=== PATIENT | male | born 1940 | race Caucasian/White ===

== ENCOUNTER → 2018-07-16 | Outpatient (CLI) | payer OTHER ==
[~2018-07-16] MED LIST: ASPIRIN325 PO; CLONIDINE0.1 PO; LIPITOR20 MG PO; MUCINEX600 MG PO; NORVASC 5 MG TAB5 MG PO; TAMIFLU30 MG PO; TOPROL XL25 MG PO
--- NOTE | 2018-07-16 15:20 | 2DMMODE ---
[place] [address] 2 D/M-MODE ECHOCARDIOGRAM Name: DON VALERIO Room: [facility]#: [id number] Admission: 07/16/18 Attend Phys: Angelo Tucker, Discharge: Date of : 38 Date of Service: 07/16/18 1519 Report #: [id number] THIS REPORT FOR: //name// APPROVED REPORT Study performed: 07/16/2018 13:42:42 EXAM: Comprehensive 2D, Doppler, and color-flow Echocardiogram Patient Location: Out-Patient Status: routine BSA: 2.31 HR: 58 bpm BP: 155/90 mmHg Other Information Study Quality: Good Indications Cardiomyopathy 2D Dimensions LVEF(%): 48.02 (>50%) IVSd: 14.63 (7-11mm) LVOT Diam: 20.28 (18-24mm) LVDd: 43.08 mm PWd: 13.15 (7-11mm) Ascending Ao: 27.97 (22-36mm) LVDs: 32.76 (25-40mm) Aortic Root: 25.94 mm Osorio's LVEF: 48.02 % Volumes Left Atrial Volume (Systole) LA ESV Index: 20.10 mL/m2 Aortic Valve AoV Peak Alex.: 1.21 m/s AO Peak Gr.: 5.86 mmHg LVOT Max P.84 mmHg AO Mean Gr.: 3.01 mmHg LVOT Mean P.59 mmHg LVOT Max V: 0.98 m/s AO V2 VTI: 23.61 cm LVOT Mean V: 0.56 m/s ARMAND (VTI): 2.84 cm2 LVOT V1 VTI: 20.79 cm Mitral Valve E/A Ratio: 0.91 MV Decel. Time: 252.78 [place] [address] 2 D/M-MODE ECHOCARDIOGRAM Name: DON VALERIO Room: [facility]#: [id number] Admission: 07/16/18 Attend Phys: Angelo Tucker, Discharge: Date of : 38 Date of Service: 07/16/18 1519 Report #: [id number] MV E Max Alex.: 0.59 m/s MV PHT: 73.31 ms MVA (PHT): 3.00 cm2 TDI E/Lateral E': 6.56 E/Medial E': 11.80 Medial E' Alex.: 0.05 m/s Lateral E' Alex.: 0.09 m/s Pulmonary Valve PV Peak Alex.: 1.15 m/s PV Peak Gr.: 5.28 mmHg Tricuspid Valve RAP Estimate: 5.00 mmHg TR Peak Gr.: 18.09 mmHg RVSP: 23.09 mmHg PA Pressure: 23.09 mmHg Left Ventricle The left ventricle is normal size. There is dyssynergy noted consistent with underlying bundle branch block. Mild to moderate concentric left ventricular hypertrophy. The left ventricular systolic function is normal. LVEF is 55-60%. Grade I - abnormal relaxation pattern. Right Ventricle The right ventricle is normal size. The right ventricular systolic function is normal. Atria The left atrium size is normal. The right atrium size is normal. Aortic Valve Aortic valve leaflets are mildly thickened. No aortic regurgitation is present. There is no aortic valvular stenosis. Mitral Valve The mitral valve is normal in structure. There is no mitral valve regurgitation noted. No evidence of mitral valve stenosis. Tricuspid Valve The tricuspid valve is normal in structure. Mild tricuspid regurgitation. No apparent pulmonary hypertension. Pulmonic Valve The pulmonary valve is normal in structure. There [place] [address] 2 D/M-MODE ECHOCARDIOGRAM Name: DON VALERIO Leonides Room: [facility]#: [id number] Admission: 07/16/18 Attend Phys: Angelo Tucker, Discharge: Date of : 38 Date of Service: 07/16/18 1519 Report #: [id number] valvular regurgitation. Great Vessels The aortic root is normal in size. IVC is normal in size and collapses with >50% inspiration Pericardium There is no pericardial effusion. <Conclusion> The left ventricle is normal size. Mild to moderate concentric left ventricular hypertrophy. The left ventricular systolic function is normal. LVEF is 55-60%. Grade I - abnormal relaxation pattern. There is dyssynergy noted consistent with underlying bundle branch block. Mild tricuspid regurgitation. No apparent pulmonary hypertension. IVC is normal in size and collapses with >50% inspiration <ELECTRONICALLY SIGNED> By: Angelo Tucker MD, FACC 07/16/18 1519 18 18 Angelo Tucker MD, FACC /INF
== END ==
LOC: M.CRD 13:16
DX: I07.1 Rheumatic tricuspid insufficiency (principal); I35.8 Other nonrheumatic aortic valve disorders; I42.8 Other cardiomyopathies

== ENCOUNTER 2019-07-15 16:43 | Emergency (ER) | payer OTHER ==
[~2019-07-15] VITALS: Ht 185.4 cm; Wt 109.8 kg
[2019-07-15] MEDS ORDERED: COREG25 MG PO (17:03)
[2019-07-15] MEDS ORDERED: ALLOPURINOL 10100 M1 PO (17:03)
[2019-07-15 17:20] LABS: ABSOLUTE EOSINOPHILS 0.1 thou/uL (0.0-0.7); ABSOLUTE LYMPHOCYTES 0.8 thou/uL (0.8-5.3); ABSOLUTE MONOCYTES 0.9 thou/uL (0.0-1.2); ABSOLUTE NEUTROPHILS 4.2 thou/uL (1.6-8.1); BASOPHILS 0.6 %; EOSINOPHILS 1.8 %; HEMOGLOBIN 12.5 gm/dL (14.0-18.0); LYMPHOCYTES 13.5 %; MCH 32.8 pg (26.0-34.0); MCHC 31.9 g/dL (28.0-37.0); MCV 102.6 fL (80.0-100.0); MONOCYTES 14.4 %; MPV 8.7 fl. (7.2-11.1); NUCLEATED RBCS 0 /100WBC; PLATELET COUNT* 201 thou/uL (150-400); POLYS 69.7 %; RDW-CV 15.5 % (10.5-14.5)
[2019-07-15 17:35] LABS: ANION GAP 10 mmol/L (7-16); BUN 30 mg/dL (7-18); CALCIUM 8.4 mg/dL (8.5-10.1); CHLORIDE 112 mmol/L (98-107); CO2 22 mmol/L (21-32); CREATININE 2.6 mg/dL (0.6-1.3); GLUCOSE 102 mg/dL (70-99); SODIUM 144 mmol/L (136-145)
[2019-07-15 17:52] LABS: ALBUMIN 2.8 g/dL (3.4-5.0); ALKALINE PHOSPHATASE 95 U/L (46-116); LIPASE 492 U/L (73-393); NT-PRO BRAIN NAT PEPTIDE 9173 pg/mL (<300); SGOT 18 U/L (15-37); SGPT 21 U/L (30-65); TOTAL BILIRUBIN 0.3 mg/dL (<0.1-1.0); TOTAL PROTEIN 6.2 g/dL (6.4-8.2); TROPONIN-I LEVEL <0.06 ng/mL (<0.06)
[2019-07-15] MEDS ORDERED: LOSARTAN-HCTZ1 EACH PO (17:59)
[2019-07-15] MEDS ORDERED: AFRIN30 ML NASAL (18:07)
[2019-07-15 18:35] VITALS: BP 202/99
--- NOTE | 2019-07-17 17:52 | EKG ---
[place] [address] ELECTROCARDIOGRAM REPORT Name: DON VALERIO Room: [facility]#: [id number] Admission: 07/15/19 Attend Phys: Discharge: 07/15/19 Date of : 38 Report #: [id number] THIS REPORT FOR: //name// [facility] ED Test Date: 2019-07-15 Test Time: 17:06:03 Pat Name: DON VALERIO Department: Room: Gender: Elevator Conductor: [facility] : 1940 Requested By: Jimy Kimble Order Number: [id number] MD: Antony Ramos Measurements Intervals [place] Rate: 62 P: 34 [place]: 208 QRS: 22 QRSD: 141 T: 193 QT: 457 QTc: 464 Interpretive Statements Sinus rhythm Left bundle branch block Compared to ECG 11/14/2012 08:02:36 Atrial premature complex(es) no longer present Electronically Signed On 07-17-2019 17:52:19 CDT by Antony Ramos [email or web address] <ELECTRONICALLY SIGNED> By: Ugo Ramos MD, [facility] 07/17/19 1752 05 05 Ugo Ramos MD, FACC /EPI
== END 2019-07-15 18:35 | disposition home or self-care (01) ==
LOC: M.ERS 16:43
PROVIDERS: Emergency Medicine
DX: I10 Essential (primary) hypertension (principal); Z98.890 Other specified postprocedural states; Z88.7 Allergy status to serum and vaccine

== ENCOUNTER → 2020-03-02 | Outpatient (CLI) | payer OTHER ==
[~2020-03-02] MED LIST changes: +AFRIN30 ML NASAL; +ALLOPURINOL 10100 M1 PO; +COREG25 MG PO; +LOSARTAN-HCTZ1 EACH PO
--- NOTE | 2020-03-02 15:38 | 2DMMODE ---
[place] [address] 2 D/M-MODE ECHOCARDIOGRAM Name: TEODORODON Leonides Room: [facility]#: [id number] Admission: 03/02/20 Attend Phys: Angelo Tucker, Discharge: Date of : 38 Date of Service: 03/02/20 1536 Report #: [id number] THIS REPORT FOR: cc: Macario Call Steve T. DO Liston, Michael J. MD [facility] ~ APPROVED REPORT Study performed: 03/02/2020 10:44:12 EXAM: Comprehensive 2D, Doppler, and color-flow Echocardiogram Patient Location: Out-Patient BSA: 2.29 HR: 55 bpm BP: 130/80 mmHg Other Information Study Quality: Good Indications Cardiomyopathy 2D Dimensions IVSd: 13.89 (7-11mm) LVOT Diam: 20.07 (18-24mm) LVDd: 52.04 mm PWd: 12.64 (7-11mm) Ascending Ao: 30.09 (22-36mm) LVDs: 43.12 (25-40mm) Aortic Root: 24.54 mm Volumes Left Atrial Volume (Systole) LA ESV Index: 22.50 mL/m2 Aortic Valve AoV Peak Alex.: 0.75 m/s AO Peak Gr.: 2.22 mmHg LVOT Max P.18 mmHg AO Mean Gr.: 1.20 mmHg LVOT Mean P.05 mmHg LVOT Max V: 0.74 m/s AO V2 VTI: 16.23 cm LVOT Mean V: 0.47 m/s ARMAND (VTI): 3.60 cm2 LVOT V1 VTI: 18.49 cm Mitral Valve E/A Ratio: 0.96 [place] [address] 2 D/M-MODE ECHOCARDIOGRAM Name: DON VALERIO Room: [facility]#: [id number] Admission: 03/02/20 Attend Phys: Angelo Tucker, Discharge: Date of : 38 Date of Service: 03/02/20 1536 Report #: [id number] MV Decel. Time: 381.24 ms MV E Max Alex.: 0.54 m/s MV PHT: 110.56 ms MVA (PHT): 1.99 cm2 TDI E/Lateral E': 10.80 E/Medial E': 10.80 Medial E' Alex.: 0.05 m/s Lateral E' Alex.: 0.05 m/s Pulmonary Valve PV Peak Alex.: 0.82 m/s PV Peak Gr.: 2.68 mmHg Tricuspid Valve RAP Estimate: 5.00 mmHg TR Peak Gr.: 18.61 mmHg RVSP: 23.61 mmHg PA Pressure: 23.61 mmHg Left Ventricle The left ventricle is normal size. There is global hypokinesis. Left ventricular systolic dyssynergy noted as well consistent with bundle branch block. There is normal left ventricular wall thickness. Left ventricular systolic function is mild to moderately decreased. LVEF is 30-35%. Transmitral Doppler flow pattern suggests restrictive physiology. Right Ventricle The right ventricle is normal size. The right ventricular systolic function is normal. Atria The left atrium size is normal. The right atrium size is normal. Aortic Valve Aortic valve leaflets are mildly thickened. No aortic regurgitation is present. There is no aortic valvular stenosis. Mitral Valve The mitral valve is normal in structure. Mild mitral regurgitation. No evidence of mitral valve stenosis. Tricuspid Valve The tricuspid valve is normal in structure. Mild tricuspid regurgitation. No apparent [place] [address] 2 D/M-MODE ECHOCARDIOGRAM Name: DON VALERIO Room: [facility]#: [id number] Admission: 03/02/20 Attend Phys: Angelo Tucker, Discharge: Date of : 38 Date of Service: 03/02/20 1536 Report #: [id number] Pulmonic Valve The pulmonary valve is normal in structure. There is no pulmonic valvular regurgitation. Great Vessels The aortic root is normal in size. IVC is not well visualized. Pericardium There is no pericardial effusion. <Conclusion> The left ventricle is normal size. There is normal left ventricular wall thickness. Left ventricular systolic function is mild to moderately decreased. LVEF is 30-35%. Transmitral Doppler flow pattern suggests restrictive physiology. There is global hypokinesis. Left ventricular systolic dyssynergy noted as well consistent with bundle branch block. Mild mitral regurgitation. Mild tricuspid regurgitation. No apparent pulmonary hypertension. <ELECTRONICALLY SIGNED> By: Angelo Tucker MD, FACC 03/02/20 1536 1536 1536 Angelo Tucker MD, FACC /INF
== END ==
LOC: M.CRD 10:16
DX: I08.3 Combined rheumatic disorders of mitral, aortic and tricuspid valves (principal); I42.8 Other cardiomyopathies

== ENCOUNTER → 2020-08-11 | Outpatient (CLI) | payer OTHER ==
[2020-08-11 15:22] LABS: CALCIUM 9.2 mg/dL (8.5-10.1); CREATININE 3.4 mg/dL (0.6-1.3); POTASSIUM 5.2 mmol/L (3.5-5.1)
== END ==
LOC: M.LAB 14:49
PROVIDERS: ATTEND Registered Nurse
DX: I50.43 Acute on chronic combined systolic (congestive) and diastolic (congestive) heart failure (principal)

== ENCOUNTER 2020-10-05 12:45 | Inpatient (IN) | payer OTHER ==
[~2020-10-05] VITALS: Ht 185.4 cm; Wt 111.1 kg
[2020-10-05 12:53] VITALS: BP 129/64
[2020-10-05 13:10] LABS: ABSOLUTE LYMPHOCYTES 0.5 thou/uL (0.8-5.3); ABSOLUTE MONOCYTES 0.6 thou/uL (0.0-1.2); ABSOLUTE NEUTROPHILS 4.1 thou/uL (1.6-8.1); BASOPHILS 0.7 %; HEMATOCRIT 38.2 % (42.0-52.0); HEMOGLOBIN 12.5 gm/dL (14.0-18.0); MCH 32.3 pg (26.0-34.0); MCHC 32.7 g/dL (28.0-37.0); MCV 98.9 fL (80.0-100.0); MONOCYTES 12.2 %; MPV 7.9 fl. (7.2-11.1); NUCLEATED RBCS 0 /100WBC; PLATELET COUNT* 212 thou/uL (150-400); POLYS 78.1 %; RBC 3.86 mil/uL (4.50-6.00); RDW-CV 15.3 % (10.5-14.5); WBC 5.3 thou/uL (4.0-11.0)
[2020-10-05 13:30] LABS: CALCIUM 8.4 mg/dL (8.5-10.1); CREATININE 4.4 mg/dL (0.6-1.3); POTASSIUM 4.2 mmol/L (3.5-5.1)
[2020-10-05 13:34] LABS: ALBUMIN 2.5 g/dL (3.4-5.0); TOTAL BILIRUBIN 0.4 mg/dL (<0.1-1.0); TOTAL PROTEIN 7.4 g/dL (6.4-8.2)
[2020-10-05 14:06] LABS: URINE BILIRUBIN NEGATIVE (Negative); URINE BLOOD NEGATIVE (Negative); URINE CLARITY CLEAR; URINE COLOR YELLOW; URINE GLUCOSE-RANDOM NEGATIVE (Negative); URINE KETONES NEGATIVE (Negative); URINE LEUKOCYTES-REFLEX NEGATIVE (Negative); URINE NITRITE-REFLEX NEGATIVE (Negative); URINE PROTEIN 2+ (Negative); URINE UROBILINOGEN 0.2 E.U./dl (0.2-1.0)
[2020-10-05 14:20] LABS: SQUAMOUS 0-3 Few /LPF (0-3)
[2020-10-05 14:21] LABS: BACTERIA-REFLEX 1-9 Few /HPF (None Seen); CASTS None Seen /LPF (None Seen); CRYSTALS None Seen /LPF (None Seen); MUCUS None Seen strn/LPF (None Seen); URINE RBC 0-2 Rare /HPF (0-2); URINE WBC-REFLEX 0-5 Rare /HPF (0-5)
--- NOTE | 2020-10-05 15:00 | EKG ---
[place] [address] ELECTROCARDIOGRAM REPORT Name: DON VALERIO Room: [facility]#: [id number] Admission: 10/05/20 Attend Phys: Discharge: Date of : 38 Date of Service: 10/05/20 1302 Report #: [id number] THIS REPORT FOR: //name// [facility] ED Test Date: 2020-10-05 Test Time: 13:02:39 Pat Name: DON VALERIO Department: Room: Gender: Vapor Coater: [facility] : 1940 Requested By: Miguelangel Reyes Order Number: [id number] MD: Angelo Tucker Measurements Intervals [place] Rate: 60 P: 238 GA: 197 QRS: 203 QRSD: 165 T: 66 QT: 469 QTc: 469 Interpretive Statements Sinus rhythm Left bundle branch block Compared to prior tracing No significant changes noted Electronically Signed On 10-05-2020 15:00:23 FOOD CHECKER by Angelo Tucker [email or web address] <ELECTRONICALLY SIGNED> By: Angelo Tucker MD, [facility] 10/05/20 1500 1302 01 Angelo Tucker MD, FACC /EPI
[2020-10-05 16:45] VITALS: BP 126/52
[2020-10-05 17:00] VITALS: BP 119/57
[2020-10-05 20:00] VITALS: BP 136/72
[2020-10-06 00:08] VITALS: BP 141/60
[2020-10-06 04:00] VITALS: BP 118/44
[2020-10-06 07:06] LABS: HEMATOCRIT 34.6 % (42.0-52.0); HEMOGLOBIN 11.4 gm/dL (14.0-18.0); MCH 32.3 pg (26.0-34.0); MCHC 32.9 g/dL (28.0-37.0); MCV 98.3 fL (80.0-100.0); MPV 8.3 fl. (7.2-11.1); RBC 3.52 mil/uL (4.50-6.00); RDW-CV 15.3 % (10.5-14.5); WBC 3.1 thou/uL (4.0-11.0)
[2020-10-06 07:24] LABS: ALBUMIN 2.1 g/dL (3.4-5.0); CALCIUM 7.4 mg/dL (8.5-10.1); CREATININE 3.8 mg/dL (0.6-1.3); POTASSIUM 4.6 mmol/L (3.5-5.1); TOTAL BILIRUBIN 0.2 mg/dL (<0.1-1.0); TOTAL PROTEIN 6.5 g/dL (6.4-8.2)
[2020-10-06 08:00] VITALS: BP 135/85
[2020-10-06 12:49] VITALS: BP 124/65
[2020-10-06 18:01] VITALS: BP 129/57
[2020-10-06 20:00] VITALS: BP 145/66
[2020-10-07 00:08] VITALS: BP 131/56
[2020-10-07 05:06] VITALS: BP 147/82
[2020-10-07 05:09] LABS: HEMOGLOBIN 11.3 gm/dL (14.0-18.0); MCH 31.9 pg (26.0-34.0); MCHC 32.3 g/dL (28.0-37.0); MCV 98.9 fL (80.0-100.0); MPV 8.4 fl. (7.2-11.1); NUCLEATED RBCS 0 /100WBC; PLATELET COUNT* 224 thou/uL (150-400); RBC 3.54 mil/uL (4.50-6.00); RDW-CV 15.5 % (10.5-14.5); WBC 5.1 thou/uL (4.0-11.0)
[2020-10-07 05:24] LABS: ALBUMIN 2.1 g/dL (3.4-5.0); CALCIUM 7.8 mg/dL (8.5-10.1); CREATININE 3.5 mg/dL (0.6-1.3); POTASSIUM 4.4 mmol/L (3.5-5.1); TOTAL BILIRUBIN 0.2 mg/dL (<0.1-1.0); TOTAL PROTEIN 6.2 g/dL (6.4-8.2)
[2020-10-07 06:46] LABS: ABSOLUTE LYMPHOCYTES 0.3 thou/uL (0.8-5.3); ABSOLUTE MONOCYTES 0.1 thou/uL (0.0-1.2); ABSOLUTE NEUTROPHILS 4.7 thou/uL (1.6-8.1); PLATELET ESTIMATE ADEQUATE
[2020-10-07 08:00] VITALS: BP 138/88
--- NOTE | 2020-10-07 11:23 | CON ---
[address] [address] CONSULTATION Name: DON VALERIO Room: [address] IN .R.#: [id number] Admission: 10/05/20 Attend Phys: Delilah Munoz MD Discharge: Date of : 38 Report #: [id number] THIS REPORT FOR: //name// cc: Macario Call Steve T. DO ~ DATE OF SERVICE: 10/06/2020 This is a consultation obtained by Dr. Munoz for acute kidney injury on chronic kidney disease. HISTORY OF PRESENT ILLNESS: The patient is an 79-year-old gentleman seen in the COVID Unit today. The patient was admitted for diarrhea, 4-5 bowel movements a day for the past week. He follows my partner, Dr. Arriola, in the outpatient for stage 3/4 chronic kidney disease. I will obtain more records from my office for the same. The patient has been on antihypertensives at home including losartan and hydrochlorothiazide. On admission, his creatinine was found to be markedly elevated at 4.4. This morning, he reports his diarrhea has improved. He denies any fevers or chills. No nausea, no vomiting, no dizziness, chest pain, etc. PAST MEDICAL HISTORY: Chronic kidney disease stage 3, hypertension, now COVID positive, gout and hernia surgery many years ago. REVIEW OF SYSTEMS: Besides diarrhea, no other major symptoms reported. HOME MEDICATIONS: Losartan, hydrochlorothiazide, oxymetazoline, and carvedilol. PERSONAL, SOCIAL AND FAMILY HISTORY: The patient is a former smoker, he quit many years ago. No family history of end-stage renal disease. PHYSICAL EXAMINATION: GENERAL: He is awake, alert, oriented x 3. VITAL SIGNS: Blood pressure 135/85, pulse of 53, temperature 36.1. LUNGS: Diminished. HEART: Regular, S1 and S2. ABDOMEN: Soft. EXTREMITIES: No edema. SKIN: Dry. LABORATORY DATA: This morning labs, white count 3.1, hemoglobin is 11.4. Metabolic panel with sodium 130, potassium 4.6, chloride 107, bicarbonate 20, BUN 69, creatinine 3.8, down from 4.4 yesterday. BUN is about the same as yesterday. AST 32, ALT 21, alkaline phosphatase 32. Albumin is 2.1, prealbumin 10.9. Urinalysis shows 2+ protein, negative ketones, no rbc's, [place] [address] CONSULTATION Name: DON VALERIO Room: [address]#: [id number] Admission: 10/05/20 Attend Phys: Delilah Munoz MD Discharge: Date of : 38 Report #: [id number] wbc's. COVID test is positive. IMAGING STUDIES: Chest x-ray on admission did not show any acute abnormalities. ASSESSMENT: 1. Nonoliguric acute kidney injury. 2. Hypertension. 3. Diarrhea recently. 4. COVID positive now. PLAN: 1. Acute kidney injury secondary to volume depletion from diarrhea and ongoing use of losartan and hydrochlorothiazide. 2. Continue normal saline at the present rate. 3. Check urine electrolytes and ultrasound of the kidneys. 4. No further workup is necessary. 5. We will get records from the office to determine his baseline renal function. Thank you for the consultation. Please avoid all nephrotoxic medications while in the hospital. <ELECTRONICALLY SIGNED> By: Isaac Cromier MD 10/07/20 1123 0911 1002Isaac Cormier MD /nt
[2020-10-07 12:30] VITALS: BP 123/78
[2020-10-07 15:49] VITALS: BP 127/73
--- NOTE | 2020-10-07 16:39 | EKG ---
[place] [address] ELECTROCARDIOGRAM REPORT Name: DON VALERIO Room: [address] ADM IN .R.#: [id number] Admission: 10/05/20 Attend Phys: Delilah Munoz, Discharge: Date of : 38 Date of Service: 10/07/20 0433 Report #: [id number] THIS REPORT FOR: //name// [facility] Test Date: 2020-10-07 Test Time: 04:33:47 Pat Name: DON VALERIO Department: Room: [address] Gender: M Jacquard Card Cutter: BX : 1940 Requested By: Arpit Diaz Order Number: [id number] Wesley MD: Kevin Amaro Measurements Intervals [place] Rate: 108 P: TN: QRS: -3 QRSD: 158 T: 150 QT: 396 QTc: 531 Interpretive Statements Atrial fibrillation Left bundle branch block Baseline wander in lead(s) V1,V3 Compared to ECG 10/05/2020 13:02:39 Sinus rhythm no longer present Electronically Signed On 10-07-2020 16:39:00 SCANNING MANAGER by Kevin Amaro [email or web address] <ELECTRONICALLY SIGNED> By: Kevin Amaro MD, FAC 10/07/20 1639 0433 0433 Kevin Amaro MD, [facility] /EPI
[2020-10-07 21:10] VITALS: BP 151/75
[2020-10-08 00:28] VITALS: BP 125/76
[2020-10-08 05:32] LABS: PREALBUMIN 13.3 mg/dL (18.0-35.7)
[2020-10-08 08:00] VITALS: BP 113/80
[2020-10-08 09:27] LABS: CALCIUM 8.8 mg/dL (8.5-10.1); CREATININE 3.4 mg/dL (0.6-1.3); POTASSIUM 4.7 mmol/L (3.5-5.1)
[2020-10-08 11:47] VITALS: BP 145/62
[2020-10-08 15:33] VITALS: BP 141/58
--- NOTE | 2020-10-08 18:11 | EKG ---
[place] [address] ELECTROCARDIOGRAM REPORT Name: DON VALERIO Room: [address] ADM IN ..#: [id number] Admission: 10/05/20 Attend Phys: Delilah Munoz, Discharge: Date of : 38 Date of Service: 10/08/20 1404 Report #: [id number] THIS REPORT FOR: //name// [facility] Test Date: 2020-10-08 Test Time: 14:04:54 Pat Name: DON VALERIO Department: Room: [address] Gender: M Machine Try Out Setter: [id number] : 1940 Requested By: Maribeth Benítez Order Number: [id number] Wesley MD: Angelo Tucker Measurements Intervals [place] Rate: 81 P: ID: QRS: 2 QRSD: 158 T: 191 QT: 419 QTc: 487 Interpretive Statements Atrial fibrillation Left bundle branch block Compared to ECG 10/07/2020 04:33:47 No significant changes Electronically Signed On 10-08-2020 18:11:24 SUPERVISOR CORE DRILLING by Angelo Tucker [email or web address] <ELECTRONICALLY SIGNED> By: Angelo Tucker MD, FACC 10/08/20 1811 1404 1404 Angelo Tucker MD, FAC /EPI
[2020-10-08 20:00] VITALS: BP 158/83
[2020-10-09] VITALS: BP 146/80
[2020-10-09 02:06] LABS: HEPATITIS B SURFACE AG Negative (Negative); HIV-1/HIV-2 ANTIBODY Non Reactive (Non Reactive)
[2020-10-09 04:00] VITALS: BP 144/81
[2020-10-09 07:05] LABS: CALCIUM 8.5 mg/dL (8.5-10.1); CREATININE 3.5 mg/dL (0.6-1.3); POTASSIUM 4.7 mmol/L (3.5-5.1)
[2020-10-09 08:00] VITALS: BP 140/77
[2020-10-09] MEDS ORDERED: PREDNISONE 10 M10 MG PO (09:53)
[2020-10-09] MEDS ORDERED: AMIODARONE HCL400 MG PO (09:53)
[2020-10-09] MEDS ORDERED: CEFDINIR300 MG PO (09:53)
[2020-10-09] MEDS ORDERED: ELIQUIS2.5 MG PO (09:53)
[2020-10-09] MEDS ORDERED: LASIX 40 MG TAB40 M1 PO (09:53)
[2020-10-09 11:31] VITALS: BP 153/87
[2020-10-09 11:33] VITALS: BP 153/87
[2020-10-09 11:36] VITALS: BP 153/87
== END 2020-10-09 13:15 | disposition home health service (06) | DRG 177 ==
LOC: M.ERS 12:45 → M.ORTHSURG 15:23 → M.TBA-ER 15:23 → M.ORTHSURG 16:33
PROVIDERS: Family Medicine; Internal Medicine; Internal Medicine Nephrology; Nurse Practitioner Family; Registered Nurse; ADMIT Internal Medicine; ATTEND Internal Medicine
PROC: XW033E5 Introduction of Remdesivir Anti-infective into Peripheral Vein, Percutaneous Approach, New Technology Group 5 (ICD-10-PCS; principal; 2020-10-06)
DX: U07.1 COVID-19 (principal); J15.6 Pneumonia due to other Gram-negative bacteria; J96.01 Acute respiratory failure with hypoxia; N17.0 Acute kidney failure with tubular necrosis; J12.89 Other viral pneumonia; I50.22 Chronic systolic (congestive) heart failure; I42.8 Other cardiomyopathies; I13.0 Hypertensive heart and chronic kidney disease with heart failure and stage 1 through stage 4 chronic kidney disease, or unspecified chronic kidney disease; N18.4 Chronic kidney disease, stage 4 (severe); K52.9 Noninfective gastroenteritis and colitis, unspecified; E66.9 Obesity, unspecified; I48.0 Paroxysmal atrial fibrillation; E86.9 Volume depletion, unspecified; M10.9 Gout, unspecified; Z68.32 Body mass index [BMI] 32.0-32.9, adult; Z79.899 Other long term (current) drug therapy

== ENCOUNTER → 2020-11-25 | Outpatient (CLI) | payer OTHER ==
[2020-11-25] VITALS (17 sets, daily range): BP systolic 100–152; BP diastolic 48–85
[~2020-11-25] MED LIST changes: +AMIODARONE HCL400 MG PO; +CEFDINIR300 MG PO; +ELIQUIS2.5 MG PO; +LASIX 40 MG TAB40 M1 PO; +PREDNISONE 10 M10 MG PO
--- NOTE | ~2020-11-25 | CARD ---
[address] [address] CARDIAC CATH REPORT Name: DON VALERIO Room: [facility]#: [id number] Admission: 11/25/20 Attend Phys: Angelo Tucker MD Discharge: Date of : 38 Report #: [id number] THIS REPORT FOR: cc: Macario Call Steve T. DO ~ Liston, Michael J. MD [facility] CARDIAC PROCEDURE INDICATION: Persistent atrial fibrillation. PROCEDURE: DC cardioversion. DESCRIPTION OF PROCEDURE: After informed consent was obtained, the patient was brought to the cardiac holding area. The patient was given intravenous Versed and fentanyl, 3 mg and 75 mg for adequate sedation. The patient failed to cardiovert from atrial fibrillation with a single biphasic shock of 300 joules. A second biphasic shock of 360 joules converted the patient to sinus bradycardia. The patient tolerated the procedure without complication. IMPRESSION: 1. Persistent atrial fibrillation. 2. Successful direct current cardioversion to normal sinus rhythm. By: 1055 [id number] Lucia Tucker MD, [facility] /nt
[2020-11-25 10:27] LABS: HEMATOCRIT 33.3 % (42.0-52.0); HEMOGLOBIN 10.9 gm/dL (14.0-18.0); MCH 33.3 pg (26.0-34.0); MCHC 32.9 g/dL (28.0-37.0); MCV 101.2 fL (80.0-100.0); MPV 7.9 fl. (7.2-11.1); RBC 3.29 mil/uL (4.50-6.00); RDW-CV 17.4 % (10.5-14.5); WBC 8.1 thou/uL (4.0-11.0)
[2020-11-25 10:35] LABS: CALCIUM 10.1 mg/dL (8.5-10.1); CREATININE 4.6 mg/dL (0.6-1.3); POTASSIUM 3.9 mmol/L (3.5-5.1)
[2020-11-25 10:40] LABS: ALBUMIN 2.8 g/dL (3.4-5.0); TOTAL BILIRUBIN 0.4 mg/dL (<0.1-1.0); TOTAL PROTEIN 6.6 g/dL (6.4-8.2)
== END | disposition home or self-care (01) ==
LOC: M.CL 09:54
PROVIDERS: ATTEND Internal Medicine Cardiovascular Disease
DX: I48.19 Other persistent atrial fibrillation (principal); I12.9 Hypertensive chronic kidney disease with stage 1 through stage 4 chronic kidney disease, or unspecified chronic kidney disease; N18.9 Chronic kidney disease, unspecified; Z98.890 Other specified postprocedural states; Z79.899 Other long term (current) drug therapy; Z79.01 Long term (current) use of anticoagulants

== ENCOUNTER → 2020-12-10 | Outpatient (CLI) | payer OTHER ==
[2020-12-10 12:13] LABS: CALCIUM 10.4 mg/dL (8.5-10.1); CREATININE 5.6 mg/dL (0.6-1.3); POTASSIUM 3.7 mmol/L (3.5-5.1)
== END ==
LOC: M.LAB 11:42
PROVIDERS: ATTEND Nurse Practitioner
DX: N18.30 Chronic kidney disease, stage 3 unspecified (principal)

== ENCOUNTER 2020-12-29 19:04 | Inpatient (IN) | payer OTHER ==
[~2020-12-29] VITALS: Ht 185.4 cm; Wt 113.1 kg
--- NOTE | ~2020-12-29 | PROC ---
[address] [address] PROCEDURE REPORT Name: DON VALERIO Room: [address] IN M.R.#: [id number] Admission: 12/29/20 Attend Phys: René Patel MD Discharge: 01/08/21 Date of : 38 Report #: [id number] THIS REPORT FOR: cc: Macario Call Steve T. DO ~ [facility],Medical Records Staff For GI report, please see the Provation report in Perceptive 7 content. By: [id number] Records Staff [facility] /MELISA
[2020-12-29 19:05] VITALS: BP 140/43
[2020-12-29 19:40] LABS: ABSOLUTE EOSINOPHILS 0.1 thou/uL (0.0-0.7); ABSOLUTE LYMPHOCYTES 0.6 thou/uL (0.8-5.3); ABSOLUTE MONOCYTES 0.8 thou/uL (0.0-1.2); ABSOLUTE NEUTROPHILS 4.3 thou/uL (1.6-8.1); BASOPHILS 0.8 %; EOSINOPHILS 1.9 %; HEMATOCRIT 24.3 % (42.0-52.0); HEMOGLOBIN 7.6 gm/dL (14.0-18.0); LYMPHOCYTES 10.2 %; MCHC 31.2 g/dL (28.0-37.0); MCV 102.4 fL (80.0-100.0); MONOCYTES 14.3 %; MPV 7.6 fl. (7.2-11.1); NUCLEATED RBCS 0 /100WBC; PLATELET COUNT* 206 thou/uL (150-400); POLYS 72.8 %; RBC 2.37 mil/uL (4.50-6.00); RDW-CV 17.3 % (10.5-14.5); WBC 5.9 thou/uL (4.0-11.0)
[2020-12-29 19:54] LABS: INR 1.1; PROTIME 12.1 Seconds (9.20-11.50)
[2020-12-29 19:55] LABS: CALCIUM 10.1 mg/dL (8.5-10.1); CREATININE 7.4 mg/dL (0.6-1.3); POTASSIUM 4.7 mmol/L (3.5-5.1)
[2020-12-29 20:05] LABS: ALBUMIN 2.9 g/dL (3.4-5.0); MAGNESIUM 3.2 mg/dL (1.8-2.4); TOTAL BILIRUBIN 0.3 mg/dL (<0.1-1.0); TOTAL PROTEIN 6.5 g/dL (6.4-8.2)
[2020-12-29 23:34] VITALS: BP 143/84
[2020-12-30] VITALS (57 sets, daily range): BP systolic 92–194; BP diastolic 43–105
--- NOTE | 2020-12-30 00:13 | NUR ---
PT ADMITTED TO ICU ROOM #4 AT 2310. CALL LIGHT IN REACH, PT DEMONSTRATES PROPER USE. PT INSTRUCTED TO REMAIN NPO AFTER MIDNIGHT FOR POSSIBLE DIALYSIS CATHETER PLACEMENT AND POSSIBLE PACEMEKER PLACEMENT.
--- NOTE | 2020-12-30 05:49 | NUR ---
INCREASED O2 TO 5 LITERS TO MAINTAIN O2 SAT > 90%
--- NOTE | 2020-12-30 06:27 | NUR ---
O2 TITRATED UP TO 10 LITERS TO MAINTAIN SAT > 90%
--- NOTE | 2020-12-30 09:44 | EKG ---
[place] [address] ELECTROCARDIOGRAM REPORT Name: TEODOROJOSE ARMANDOPatrick Leonides Room: [address] ADM IN [facility]#: [id number] Admission: 12/29/20 Attend Phys: René Patel, Discharge: Date of : 38 Date of Service: 12/29/202018 Report #: [id number] THIS REPORT FOR: //name// [facility] ED Test Date: 2020-12-29 Test Time: 20:19:27 Pat Name: DON VALERIO Department: Room: [facility] Gender: M Watch Leader: RADHA : 1940 Requested By: Eleonora Georges Order Number: [id number] MD: Angelo Tucker Measurements Intervals [place] Rate: 50 P: 0 MI: 68 QRS: -1 QRSD: 186 T: 107 QT: 558 QTc: 509 Interpretive Statements Sinus rhythm Atrial premature complex Short MI interval IVCD, consider atypical LBBB Baseline wander in lead(s) V1 Compared to ECG 10/08/2020 14:04:54 Atrial premature complex(es) now present Short MI interval now present Atrial fibrillation no longer present Electronically Signed On 12-30-2020 9:44:07 RECORD FILING CLERK by Angelo Tucker [email or web address] <ELECTRONICALLY SIGNED> By: Angelo Tucker MD, [facility] 12/30/20 0944 18 18 Angelo Tucker MD, [facility] /EPI
[2020-12-30 13:54] LABS: URINE BILIRUBIN NEGATIVE (Negative); URINE BLOOD NEGATIVE (Negative); URINE CLARITY CLEAR; URINE COLOR YELLOW; URINE GLUCOSE-RANDOM NEGATIVE (Negative); URINE KETONES NEGATIVE (Negative); URINE LEUKOCYTES-REFLEX NEGATIVE (Negative); URINE NITRITE-REFLEX NEGATIVE (Negative); URINE PROTEIN TRACE (Negative); URINE UROBILINOGEN 0.2 E.U./dl (0.2-1.0)
--- NOTE | 2020-12-30 14:00 | NUR ---
PT.SLEEPING. AT BEDSIDE. SHE SPOKE SOME URDU BUT VERY LITTLE. SHE ASKED THAT I CALL SON,VITA. HE LIVES WITH THEM AND WOULD BE ABLE TO ANSWER QUESTIONS. HAD TO LEAVE A VM AT [phone] VITA.
--- NOTE | 2020-12-30 14:09 | EKG ---
[place] [address] ELECTROCARDIOGRAM REPORT Name: DON VALERIO Room: [address] ADM IN ..#: [id number] Admission: 12/29/20 Attend Phys: René Patel, Discharge: Date of : 38 Date of Service: 12/29/201909 Report #: [id number] THIS REPORT FOR: //name// [facility] ED Test Date: 2020-12-29 Test Time: 19:10:38 Pat Name: DON VALERIO Department: Room: [address] Gender: M Fine Arts Instructor: LINA : 1940 Requested By: Eleonora Georges Order Number: [id number] Wesley MD: Angelo Tucker Measurements Intervals [place] Rate: 43 P: ND: QRS: -16 QRSD: 170 T: 158 QT: 498 QTc: 422 Interpretive Statements Junctional rhythm Left bundle branch block Compared to ECG 12/29/2020 19:09:13 No significant changes noted Electronically Signed On 12-30-2020 14:09:41 BOOKMAKER'S CLERK by Angelo Tucker [email or web address] <ELECTRONICALLY SIGNED> By: Angelo Tucker MD, FACC 12/30/20 1409 09 09 Angelo Tucker MD, FAC /EPI
--- NOTE | 2020-12-30 14:09 | EKG ---
[place] [address] ELECTROCARDIOGRAM REPORT Name: DON VALERIO Room: [address] ADM IN [facility]#: [id number] Admission: 12/29/20 Attend Phys: René Patel, Discharge: Date of : 38 Date of Service: 12/29/20 190 Report #: [id number] THIS REPORT FOR: //name// [facility] ED Test Date: 2020-12-29 Test Time: 19:09:13 Pat Name: DON VALERIO Department: Room: [facility] Gender: M Separator Operator Shellfish Meats: LINA : 1940 Requested By: Eleonora Georges Order Number: [id number] MD: Angelo Tucker Measurements Intervals [place] Rate: 44 P: FL: QRS: -28 QRSD: 173 T: 206 QT: 537 QTc: 460 Interpretive Statements Junctional rhythm Left bundle branch block Baseline wander in lead(s) II,III,aVR,aVL,aVF,V1,V2,V3 Compared to ECG 10/08/2020 14:04:54 Junctional rhythm now present Atrial fibrillation no longer present Electronically Signed On 12-30-2020 14:09:27 STILL CLEANER by Angelo Tucker [email or web address] <ELECTRONICALLY SIGNED> By: Angelo Tucker MD, FAC 12/30/20 1409 08 08 Angelo Tucker MD, FAC /EPI
--- NOTE | 2020-12-30 19:39 | NUR ---
Patient bradycardic throughout shift but asymptomatic; dialysis catheter inserted at the bedside by Dr. Browne, right jugular. Hidalgo catheter inserted for accurate I&Os. Atropine .5mg given once during dialysis. Tolorated hemodialysis. Pt tolorated diet; was at bedside this afternoon and updated.
[2020-12-31] VITALS (202 sets, daily range): BP systolic 93–189; BP diastolic 38–119
[2020-12-31 02:06] LABS: HEPATITIS B SURFACE AG Negative (Negative)
[2020-12-31 04:30] LABS: HEMOGLOBIN 7.3 gm/dL (14.0-18.0); MCH 32.2 pg (26.0-34.0); MCHC 31.9 g/dL (28.0-37.0); MCV 101.2 fL (80.0-100.0); MPV 7.8 fl. (7.2-11.1); RBC 2.27 mil/uL (4.50-6.00); RDW-CV 16.9 % (10.5-14.5); WBC 8.3 thou/uL (4.0-11.0)
[2020-12-31 04:56] LABS: ALBUMIN 2.8 g/dL (3.4-5.0); CALCIUM 9.4 mg/dL (8.5-10.1); POTASSIUM 4.3 mmol/L (3.5-5.1); TOTAL BILIRUBIN 0.4 mg/dL (<0.1-1.0); TOTAL PROTEIN 6.4 g/dL (6.4-8.2)
[2020-12-31 04:59] LABS: % SATURATION 12 % (20-39); CREATININE 5.5 mg/dL (0.6-1.3); IRON 42 ug/dL (50-175)
--- NOTE | 2020-12-31 09:07 | CON ---
[address] [address] CONSULTATION Name: DON VALERIO Leonides Room: [address] IN .R.#: [id number] Admission: 12/29/20 Attend Phys: René Patel MD Discharge: Date of : 39 Report #: [id number] THIS REPORT FOR: cc: Macario Call Steve T. DO ~ Angelo Tucker MD [facility] CARDIOLOGY CONSULT INDICATION: Lethargy and acute renal failure. HISTORY OF PRESENT ILLNESS: The patient is a very pleasant 80-year-old gentleman well known to ourselves. He has a history of nonischemic cardiomyopathy with an ejection fraction of 30-35%. Additionally, he has hypertension and chronic renal insufficiency. He presents to the hospital with acute worsening of his underlying chronic renal insufficiency. His creatinine is approximately 7. His electrolytes are stable. Primary complaint is increasing shortness of breath and lethargy over the last several weeks. Additionally, he is anemic with a hemoglobin of 7.5, which represents a fall in his hemoglobin. He is heme positive by guaiac stool. He is not having any chest pain or significant acute worsening of his shortness of breath. PAST MEDICAL HISTORY: 1. Nonischemic cardiomyopathy. 2. Chronic renal insufficiency that was stage 4, now end-stage. 3. Paroxysmal atrial fibrillation, on amiodarone. 4. Recent COVID-19 infection. 5. Hypertension. ALLERGIES: None documented. REPORTED HOME MEDICATIONS: Allopurinol 100 mg p.o. b.i.d., amiodarone 200 mg daily, Eliquis 2.5 mg b.i.d., carvedilol 25 mg b.i.d., furosemide 80 mg p.o. daily, Afrin nasal spray q.i.d., prednisone 10 mg daily. FAMILY HISTORY: Noncontributory. SOCIAL HISTORY: The patient is a nonsmoker. He does not drink alcohol. He quit smoking many, many years ago. REVIEW OF SYSTEMS: A 14-point review of systems significant for dyspnea on exertion, shortness of breath at rest and malaise and fatigue. Otherwise, unremarkable. PHYSICAL EXAMINATION: VITAL SIGNS: Stable. Heart rate presently 50 [place] [address] CONSULTATION Name: DON VALERIO Room: [address]#: [id number] Admission: 12/29/20 Attend Phys: René Patel MD Discharge: Date of : 39 Report #: [id number] telemetry. Blood pressure is 127/62. GENERAL: This is a pleasant gentleman who is in no distress. HEENT: Head is normocephalic, atraumatic. Extraocular muscles intact. Mucous membranes are moist. NECK: Shows no obvious jugular venous distention. CHEST: Reveals clear lung munson without wheezes or rales. CARDIOVASCULAR: Reveals a bradycardic rhythm that is regular, without gallop or murmur. ABDOMEN: Reveals a protuberant abdomen with bowel sounds. The abdomen is somewhat distended, but appears nontender. EXTREMITIES: Shows 1+ edema to above the knees bilaterally. LABORATORY DATA: Reviewed. Sodium 148, potassium 4.7, chloride 112, bicarbonate 27, BUN 128, creatinine 7.4, serum glucose 121. LFTs are within normal limits. Troponin less than 0.06 on 3 separate occasions. NT-proBNP 4458. White blood cell count 5.9, hemoglobin 7.3, and platelet count 206,000. Chest x-ray shows no acute changes. IMPRESSION AND RECOMMENDATIONS: 1. Nonischemic cardiomyopathy with slight exacerbation secondary to acute renal failure consistent with lnivh-gl-wnnhmvf systolic heart failure. The patient is going to be dialysis dependent for volume removal. Nephrology has been consulted and dialysis started. Beta edith discontinued due to bradycardia. He is not on an YASMANY inhibitor or ARB secondary to renal failure. We will resume other heart failure medications as tolerated. 2. Bradycardia. The patient presently in sinus bradycardia. His carvedilol and amiodarone have been discontinued. He is hemodynamically stable at this time. Continue holding rate controlling medications at this time. 3. Paroxysmal atrial fibrillation. He has been in sinus rhythm on amiodarone. This has been discontinued due to bradycardia. Anticoagulation held due to possible GI bleeding. We will resume when medically possible. 4. End-stage renal disease. Per Nephrology. A dialysis catheter has been placed and he has begun dialysis. 5. Hypertension, presently controlled. We will follow and add medicines as needed. 6. Chronic left bundle branch block. 7. Gastrointestinal bleeding with drop in hemoglobin. The patient has remained hemodynamically stable. I believe he is stable enough from a cardiac standpoint to proceed with EGD and colonoscopy. <ELECTRONICALLY SIGNED> By: Angelo Tucker MD, FACC 12/31/20 0907 1722 19Microhan Tucker MD, FACC /nt
--- NOTE | 2020-12-31 09:51 | CON ---
[address] [address] CONSULTATION Name: DON VALERIO Room: [address] IN .R.#: [id number] Admission: 12/29/20 Attend Phys: René Patel MD Discharge: Date of : 39 Report #: [id number] THIS REPORT FOR: cc: Macario Call Steve T. DO ~ Tima Camp MD DATE OF SERVICE: 12/30/2020 REQUESTING PHYSICIAN: Dr. René Patel. REASON FOR CONSULTATION: Uremia. HISTORY OF PRESENT ILLNESS: The patient is an 80-year-old gentleman, with medical history significant for chronic kidney disease stage 5, who was advised by Dr. Arriola to come to the hospital due to anemia and progressive worsening of his renal status. His creatinine is now 7 and on reviewing the labs, I think it is just a progression of his disease and now he reaches end-stage renal disease. Other problems include hypertension, anemia and obesity. He also recently had a COVID infection that was in 09/2020. MEDICATIONS PRIOR TO ADMISSION: Reviewed. On admission, he complains of overall weakness, dyspnea on exertion, pollakiuria and nocturia. He does not have any chest pain or chest pressure. PHYSICAL EXAMINATION: GENERAL: He is awake, alert, oriented. VITAL SIGNS: His blood pressure 138/59, heart rate 47, afebrile. HEENT: Pupils are round. NECK: Fatty. LUNGS: Fairly clear. No crackles. CARDIOVASCULAR: Distant heart tones. ABDOMEN: Obese. LOWER EXTREMITIES: Trace edema. LABORATORY DATA: Lab report revealed hemoglobin of 7.3, serum sodium 148, potassium 4.7, chloride 112, carbon dioxide 27, BUN 128, creatinine 7.4. ASSESSMENT: 1. Chronic kidney disease stage 5, now progressed to end-stage. 2[place] [address] CONSULTATION Name: DON VALERIO Leonides Room: [address]#: [id number] Admission: 12/29/20 Attend Phys: René Patel MD Discharge: Date of : 39 Report #: [id number] 3. Obesity. 4. Hypertension. PLAN: ____ to place a tunneled dialysis line and start dialysis. We will check his iron stores. We will follow on his chemistries and hemoglobin. The rest of the problems will be addressed by the primary team. <ELECTRONICALLY SIGNED> By: Tima Camp MD 12/31/20 0951 0950 [id number] Camp MD /nt
--- NOTE | 2020-12-31 10:58 | NUR ---
0945 PATIENT ON COMMODE HAVING BOWEL MOVEMENT WHEN HE ELIZABET DOWN INTO THE 30'S NURSE AT BEDSIDE. PATIENT SYMPTOMATIC WITH DIZZYNESS, PALE, BLOOD PRESSURE DECRESSING AND LETHARGIC. NURSE ABLE TO KEEP PATIENT AWAKE AND FOLLOWING COMMANDS. CARDIOLOGY AND HOSPITALIST CALLED STAT, ORDERS RECIEVED FOR ATROPINE AFTER GIVING 3 DOSES, OF 1MG PATIENT HR WAS STILL NOT RESPONDING TO ATROPINE. DOPAMINE STARTED AND HEART RATE IMPROVED TO THE 40'S AND 500CC NS BOLUS GIVEN WELL. PATIENT WAS THEN TAKEN EMERGENLY TO [facility]ACHINE TO HAVE A TEMP PACEMAKER PLACED. PRIOR TO LEVING TO HAVE PACEMAKER PLACED PATIENT WAS LETHARGIC BUT ABOUT TO FOLLOW COMMANDS. PATIENT RETURNED FROM [facility] SATS IN THE 70'S, PATEINT PLACED ON NON-REBREATHER, STATES REMAINED IN THE 70'S. RT PAGED AND PATIENT PLACED ON BIPAP.PATIENT IS NOW SATING IN THE UPPER 90'S NOW, UNABLE TO FOLLOW COMMANDS AT THIS TIME. WILL CONTINUE TO MONITOR POC.
[2020-12-31 13:24] LABS: BE 2.6 mmol/L (-2 to +3)
[2020-12-31 13:26] LABS: pH 7.276 (7.340-7.450)
[2020-12-31 13:27] LABS: PCO2 65.8 mmHg (35.0-45.0); PO2 154.9 mmHg (75.0-100.0)
--- NOTE | 2020-12-31 15:00 | NUR ---
ICU ROUNDS: PT.HAD PACEMAKER PLACEMENT LAST NIGHT. IS ON BIPAP AND AWAITING DIALYSIS. NO VISITORS AT PRESENT. CM SPOKE WITH SONFELIZ ON PHONE. HE SAID PRIOR TO ABOUT 2 WEEKS AGO, HIS DAD WAS DOING OK. HAS A WALKER AND SCOOTER AND GOT AROND WELL. WAS INDEPENDNET. HAD COVID IN AND RECOVERED FROM THAT. HE STARTED GETTING MORE AND MORE SHORT OF AIR. PCP ADVISED HE COME TO ED. NO HX OF HH OR SNF. CM WILL FOLLOW. WILL NEED OUTPT.HEMODIALYSIS UPON DISCHARGE FROM HOSPITAL. IS CRITICALLY ILL AT THIS TIME.
[2020-12-31 16:38] LABS: BE 3.3 mmol/L (-2 to +3); PO2 91.3 mmHg (75.0-100.0); pH 7.366 (7.340-7.450)
[2020-12-31 16:43] LABS: PCO2 52.5 mmHg (35.0-45.0)
--- NOTE | 2020-12-31 17:38 | NUR ---
PATIENT REMAINS ON THE BIPAP AT THIS TIME. ONLY RESPONDING TO PAIN AT THIS TIME. ALSO SMALL SOFT ? HEMATOMA NOTED LEFT NECK JUST UNDER TEMP DIALYSIS CATH. PHYSICIAN IS AWARE. UPDATED PATIENT'S SON MULTIPLE TIMES THIS SHIFT. TEMP PACEMAKER IN RIGHT GROIN WITH NO HEMATOMA OR BRUIE NOTED.
--- NOTE | 2020-12-31 23:55 | NUR ---
CODE STROKE CALLED ON PATIENT. PATIENT AWOKE AND BECAME MORE ALERT BUT SHOWED INCREASED CONFUSION AND SLURRED SPEECH. PARTIAL FACIAL DROOP NOTED AND DECREASED MOTOR COORDINATION. NIH INITIALLY SCORED AT 8. CT OF THE HEAD ORDERED AND NEUROLOGY CONSULTED PER CODE STROKE PROTOCOL. SPOKE WITH DR. REAVES REGARDING RESULTS OF CT. ORDERS OBTAINED FOR EEG IN THE MORNING AND TO KEEP SBP AROUND 140, WILL EVALUATE IN THE MORNING. PATIENT WAS HYPOXIC FOR EXTENDED DURATION WHILE IN LAPPING MACHINE SET UP OPERATOR PER LAPPING MACHINE SET UP OPERATOR REPORT.
[2021-01-01] VITALS (35 sets, daily range): BP systolic 126–177; BP diastolic 48–98
[2021-01-01 00:43] LABS: ALBUMIN 2.9 g/dL (3.4-5.0); CALCIUM 8.9 mg/dL (8.5-10.1); CREATININE 4.2 mg/dL (0.6-1.3); MAGNESIUM 2.4 mg/dL (1.8-2.4); POTASSIUM 4.6 mmol/L (3.5-5.1); TOTAL BILIRUBIN 0.8 mg/dL (<0.1-1.0); TOTAL PROTEIN 6.9 g/dL (6.4-8.2)
[2021-01-01 00:56] LABS: RBC ND mil/uL (4.50-6.00); WBC ND thou/uL (4.0-11.0)
[2021-01-01 00:57] LABS: HEMATOCRIT ND % (42.0-52.0); HEMOGLOBIN ND gm/dL (14.0-18.0)
[2021-01-01 00:58] LABS: MCH ND pg (26.0-34.0); MCHC ND g/dL (28.0-37.0); MCV ND fL (80.0-100.0)
[2021-01-01 00:59] LABS: MPV ND fl. (7.2-11.1); PLATELET COUNT* ND thou/uL (150-400); RDW-CV ND % (10.5-14.5)
[2021-01-01 01:01] LABS: BANDS ND %; LYMPHOCYTES ND %; POLYS ND %
[2021-01-01 01:02] LABS: NUCLEATED RBCS ND /100WBC
[2021-01-01 01:31] LABS: HEMATOCRIT 26.9 % (42.0-52.0); HEMOGLOBIN 8.7 gm/dL (14.0-18.0); MCH 31.6 pg (26.0-34.0); MCHC 32.2 g/dL (28.0-37.0); MCV 98.1 fL (80.0-100.0); MPV 7.9 fl. (7.2-11.1); NUCLEATED RBCS 0 /100WBC; PLATELET COUNT* 118 thou/uL (150-400); RBC 2.74 mil/uL (4.50-6.00); RDW-CV 17.3 % (10.5-14.5); WBC 7.8 thou/uL (4.0-11.0)
[2021-01-01 03:32] LABS: ABSOLUTE MONOCYTES 0.1 thou/uL (0.0-1.2); ABSOLUTE NEUTROPHILS 7.7 thou/uL (1.6-8.1); ANISOCYTOSIS 1+; PLATELET ESTIMATE DECREASED
[2021-01-01 03:34] LABS: POLYCHROMASIA 1+
--- NOTE | 2021-01-01 06:49 | NUR ---
APPROX 0000 PT WAS SLURRED SPEECH AND DISORINTATED, CODE STROKE CALLED, NOT A TPA CANDIDATE, CT DONE NO BLEED NOTED. PROVIDER NOTIFED. PT ORIENTATION IMPROVED THROUGH THE NIGHT.
--- NOTE | 2021-01-01 17:35 | NUR ---
HEMODIALYSIS DONE THIS AM, TOLERATED WELL, UF 3L. TEMP PACEMAKER CONTD, RATE AT 60. DISTAL PULSES PRESENT. TOLERATING DIET. VSS. O2 SUPP DOWN TO 4L/MIN. BIPAP ONLY AT NIGHT. IN THE ROOM DURING THE DAY.
[2021-01-02] VITALS (22 sets, daily range): BP systolic 121–169; BP diastolic 53–101
[2021-01-02 04:32] LABS: ABSOLUTE LYMPHOCYTES 0.3 thou/uL (0.8-5.3); ABSOLUTE MONOCYTES 1.4 thou/uL (0.0-1.2); ABSOLUTE NEUTROPHILS 13.1 thou/uL (1.6-8.1); BASOPHILS 0.1 %; HEMOGLOBIN 8.8 gm/dL (14.0-18.0); LYMPHOCYTES 2.3 %; MCH 31.7 pg (26.0-34.0); MCHC 32.5 g/dL (28.0-37.0); MCV 97.5 fL (80.0-100.0); MONOCYTES 9.4 %; MPV 8.4 fl. (7.2-11.1); NUCLEATED RBCS 1 /100WBC; PLATELET COUNT* 108 thou/uL (150-400); POLYS 88.2 %; RBC 2.77 mil/uL (4.50-6.00); WBC 14.9 thou/uL (4.0-11.0)
[2021-01-02 05:11] LABS: CALCIUM 8.9 mg/dL (8.5-10.1); CREATININE 3.8 mg/dL (0.6-1.3); MAGNESIUM 2.3 mg/dL (1.8-2.4); POTASSIUM 4.4 mmol/L (3.5-5.1)
--- NOTE | 2021-01-02 12:05 | NUR ---
Per Dr. Tucker, pt is ok to sit in chair at bedside with legs elevated. Pt tolerated standing and moving well. Pt pacer site still dry/intact with no hematoma after activity.
--- NOTE | 2021-01-02 12:31 | CARD ---
[address] [address] CARDIAC CATH REPORT Name: DON VALERIO Room: [address] IN [facility]#: [id number] Admission: 12/29/20 Attend Phys: René Patel MD Discharge: Date of : 39 Report #: [id number] THIS REPORT FOR: cc: Macario Call Steve T. DO ~ Angelo Tucker MD [facility] APPROVED REPORT Study performed: 12/31/2020 10:11:54 Patient Status: In-Patient Room #: Event Personnel: Natalie Porter RN RN, Malissa Daley Kramer, Jessie RTR ScrubGarrett Michael Journeyman Pipe Welder Exam: Temporary Pacemaker Insertion Indications: Bradicardia The patient is a 80 year-old male with a history of Atrial fibrillation cardia. Conscious Sedation No sedation given Implanted Devices: Temporary pacer lead. Procedure The patient underwent informed consent. We discussed the details of the procedure including the risks, which include, but not limited to bleeding, infection, vascular damage, cardiac perforation, and pneumothorax. After informed consent was obtained the patient was brought to the cardiac catheterization lab. The right groin was prepped and draped in sterile fashion. Local anesthesia was achieved with 1% lidocaine. Next a 6 Pashto venous sheath was placed using the Seldinger technique. A temporary pacing lead was advanced to a secure position within the right ventricle under fluoroscopic guidance. Thresholds were checked and deemed to be satisfactory. The sheath at the pacemaker lead were secured with a single stitch. The patient tolerated procedure well without complication. He was returned to his room in [place] [address] CARDIAC CATH REPORT Name: JOSE ARMANDO VALERIOPatrick Leonides Room: [address] IN [facility]#: [id number] Admission: 12/29/20 Attend Phys: René Patel MD Discharge: Date of : 39 Report #: [id number] 1. Symptomatic sinus bradycardia. 2. Successful placement of a temporary pacemaker lead. <ELECTRONICALLY SIGNED> By: Angleo Tucker MD, FACC 01/02/21 1231 1231 1231Microhan Tucker MD, FACC /INF
--- NOTE | 2021-01-02 16:21 | NUR ---
Pt stable throughout shift. Dr. Tucker visited and turned off pacer to verify underlying rhythm, which there was at a rate of 33. He left it off for about 5-6 minutes and then turned it back on at the rate of 60. Pt was given the ok to get up to chair and bsc with assistance. Pt tolerated well, but needs some assistance for balance d/t being immobile for several days. Pt was positive for occult stool, but had no signs of bleeding this shift. BM x1. Assessment as charted. Pt d/t go for pacemaker placement as well as a dialysis catheter change Sunday or Sunday at the latest. Dialysis on Sunday and Sunday which removed 5 Liters total. Pt is due to have dialysis again on Sunday01/03/21. at bedside. All questions and concerns addressed and education provided. Pt denies any pain or needs at this time.
[2021-01-03] VITALS (59 sets, daily range): BP systolic 89–180; BP diastolic 43–109
[2021-01-03 05:19] LABS: CALCIUM 9.2 mg/dL (8.5-10.1); CREATININE 4.5 mg/dL (0.6-1.3); POTASSIUM 4.1 mmol/L (3.5-5.1)
--- NOTE | 2021-01-03 11:40 | CON ---
[address] [address] CONSULTATION Name: DON VALERIO Leonides Room: [address] IN .R.#: [id number] Admission: 12/29/20 Attend Phys: René Patel MD Discharge: Date of : 39 Report #: [id number] THIS REPORT FOR: cc: Macario Call Steve T. DO ~ Jorge A Almazan MD DATE OF SERVICE: 12/31/2020 CONSULT REQUESTED BY: Arpit Diaz DO. INDICATION FOR CONSULTATION: Acute hypoxemic respiratory failure. HISTORY OF PRESENT ILLNESS: This is an 80-year-old gentleman with past medical history as mentioned below. This does include a history of nonischemic cardiomyopathy, left ventricular ejection fraction is 30%-35%. His right heart pressures are not elevated. He does have chronic renal failure; however, he has previously not been on hemodialysis. He has a remote history of smoking. He does not carry a diagnosis of COPD. It is possible that he has previously undiagnosed obstructive sleep apnea. The patient now is admitted on 12/29 which is 2 days ago, presentation was with increasing shortness of breath as well as lethargy. The patient also is noted to be anemic. His hemoglobin is now 7.3, although clinically he appears to be fluid overloaded. His hemoglobin was 11.3 in 10/2020 and 10.9 in 11/2020. So, it does appear to be an acute drop, although part of this could be from fluid overload. The patient previously has been on Eliquis for history of atrial fibrillation. He was noted to this time be bradycardic. He in fact became hypotensive and more jayashree today and therefore required a temporary pacemaker placement, was started on dopamine and also received atropine. The patient subsequent to temporary pacemaker placement in fact had worsening O2 saturation, previously is reported to be on nasal cannula. When he was brought back to the ICU and I was consulted, the patient was on 100% nonrebreather mask and O2 saturation could not be brought up above 82%-84%. We proceeded to placing the patient on a BiPAP of 16/8 with 80% FiO2. We have brought his O2 saturation up to the high 90s with this. We also did a chest x-ray. It does show new acute pulmonary edema. The official report from the radiologist is pending; however, I do not see any obvious pneumothorax on this x-ray. The patient's blood pressure was now high, so we took him off the dopamine infusion. I did give him a dose of 80 mg of Lasix. I understand the dialysis is planned shortly and I did communicate with Dr. Camp regarding this. The patient is acutely short of breath. [place] [address] CONSULTATION Name: DON VALERIO Room: [address] IN [facility]#: [id number] Admission: 12/29/20 Attend Phys: René Patel MD Discharge: Date of : 39 Report #: [id number] the procedure he had and therefore is unable to provide a further history or review of systems. PAST MEDICAL HISTORY: Chronic renal failure, previously has not been on hemodialysis; nonischemic cardiomyopathy, left ventricular ejection fraction is 30%-35%, the right heart pressures are not elevated, COVID-19 infection from which he recovered recently, paroxysmal atrial fibrillation, has been on amiodarone as well as Eliquis, hypertension. There is mention of anemia on the record; however, the drop in hemoglobin appears to be acute. As noted, hemoglobin levels were at near normal levels in October. SOCIAL HISTORY: He is reported to have previously smoked and now discontinued, I am unable to quantify exactly at this time. No known history of heavy alcohol use or illegal drug use. CURRENT MEDICATIONS: List in [employer] reviewed. HOME MEDICATIONS: List in [employer] also reviewed. ALLERGIES: No known drug allergies. FAMILY HISTORY: There is no known pertinent family history. PHYSICAL EXAMINATION: GENERAL: The patient was drowsy, was arousable. VITAL SIGNS: Initially when I saw him, he was on 100% nonrebreather mask, saturating 82%-84% with a blood pressure of 145/86. Heart rate 60, paced, respiratory rate in the mid 20s, afebrile with a temperature of 36.6. We have placed him on a BiPAP of 16/8 with 80% FiO2, O2 saturation has improved now to the high 90s. Body mass index is 35.1. HEENT: Head is normocephalic and atraumatic. Pupils are equal and reactive. There is no throat erythema, narrow airway. Mucous membranes do look moist. NECK: Does not show raised JVP, symmetry, mass or lymph nodes. CHEST: Symmetrical expansion on inspection and palpation. On auscultation, there are occasional rales at bilateral lung bases. I do not hear any wheezes. HEART: Regular. There is no murmur. ABDOMEN: Mildly distended, nontender. EXTREMITIES: Lower extremities do show 2+ edema bilaterally. There is no calf tenderness. SKIN: Dry and intact. NEUROLOGICAL: Moves all extremities bilaterally equally and spontaneously with no focal deficit identified. LABORATORY DATA: The patient's chest x-rays are as discussed above. Lab work [address] [address] CONSULTATION Name: JOSE ARMANDO VALERIOPatrick Leonides Room: [address] ADM IN M.R.#: [id number] Admission: 12/29/20 Attend Phys: René Patel MD Discharge: Date of : 39 Report #: [id number] also as discussed above. The rest of the labs are in [employer] and I reviewed these. COVID-19 antigen was negative. ASSESSMENT AND PLAN: 1. Acute hypoxemic respiratory failure. The patient has obviously an acute pulmonary edema, needs fluid removal. As this is an emergent situation, I went ahead and gave him 80 of Lasix; however, considering his renal failure, I will not expect it to be very effective. He needs fluid removal by hemodialysis and I did review with Dr. Camp and I understand that this is being arranged shortly, still his respiratory status improves and fluid can be removed. We will support him on the BiPAP. Down the line, I also intent to obtain an arterial blood gas. 2. Btogi-gq-wibefvd systolic congestive heart failure, appears to be decompensated by worsening renal failure secondary to underlying nonischemic cardiomyopathy. Cardiology service is on the case. 3. Bradycardia/paroxysmal atrial fibrillation. His blood pressure is now high and he has a pacemaker in place and it is pacing at 60. Therefore, for now, I discontinued dopamine; however, I recommended that we can restart dopamine in case MAP drops below 65. Note that the patient until recently was on Eliquis. 4. Worsening chronic renal failure. Plan for dialysis as above. 5. Acute blood loss anemia. Certainly part of the anemia could be secondary to renal failure as well; however, there is a drop in hemoglobin from 12.5 on 10/05 to 7.3 today and therefore suspect that there is a source of acute blood loss as well. The GI service is on the case. Pending GI review, I did order Protonix. I am told that he is guaiac positive. I understand that there is a plan to transfuse him with packed RBCs during hemodialysis as well. 6. Suspected obstructive as well as central sleep apnea. The patient likely has baseline hypoxemia while asleep. The patient, I suspect, may also have significant central as well as obstructive sleep apnea. This would need further evaluation later and may benefit from oxygen while asleep long-term. May also benefit from a sleep study down the line. 7. History of smoking in the past. I ordered one dose of Solu-Medrol as well and I did place him on nebulized bronchodilators. 8. Deep vein thrombosis prophylaxis. Recommend sequential compression devices. Once some fluid has been removed, obviously, we will hold off on anticoagulation secondary to anemia. D-dimer is not elevated at 0.49. 9. Macrocytosis, MCV is noted to be up to 102.4 on admission. I am not aware of any alcohol intake, but we will ask the patient once he is more stable. Also, I recommended obtaining a B12 and folate level if not previously obtained. 10. Recent history of COVID-19 with recovery. The patient is critically [place] [address] CONSULTATION Name: DON VALERIO Room: [address] IN [facility].#: [id number] Admission: 12/29/20 Attend Phys: René Patel MD Discharge: Date of : 39 Report #: [id number] Total time spent providing critical care to this patient today exceeds 41 minutes. <ELECTRONICALLY SIGNED> By: Jorge A Almazan MD 01/03/21 1140 1207 [id number] Almazan MD /nt
--- NOTE | 2021-01-03 11:53 | NUR ---
ICU ROUNDS: PT SCHED TO HAVE TUNNELED DIALYSIS CATHETER AND PACEMAKER PLACE TODAY.
[2021-01-04] VITALS (40 sets, daily range): BP systolic 113–172; BP diastolic 41–108
--- NOTE | 2021-01-04 11:03 | NUR ---
Spoke with RN regarding patient having temporary cath converted to tunneled catheter. Confirmed that it needed to still be done. Patient will have dialysis tomorrow morning. patient scheduled for tomorrow after lunch.
--- NOTE | 2021-01-04 13:04 | CARD ---
[address] [address] CARDIAC CATH REPORT Name: DON VALERIO Room: [address] IN [facility]#: [id number] Admission: 12/29/20 Attend Phys: René Patel MD Discharge: Date of : 38 Report #: [id number] THIS REPORT FOR: cc: Macario Call Steve T. DO ~ Angelo Tucker MD [facility] APPROVED REPORT Study performed: 01/03/2021 16:32:52 Patient Status: In-Patient Room #: ICU 4 Event Personnel: Natalie Porter RN Brakeshoe Repairer, Senthil Mitchell RTR Monitor, An Elliott RTR Scrub, Angelo Tucker Set Rider Exam: Insertion of Dual Chamber Permanent Pacemaker Indications: Complete Heart Block The patient is a 80 year-old male with a history of . Conscious Sedation Start time: 1658 End Time: 1735 Fentanyl 25 mcg Versed 1 mg Implanted Devices: Biotronik E. Sola 8 DRT, model #311432, serial #[id number] dual-chamber pacemaker generator. Biotronik Solia S 53, model #770334, serial #[id number] atrial lead. Biotronik Solia S 60, model #912810, serial #[id number] ventricularly. Procedure The patient underwent informed consent. We discussed the details of the procedure including the risks, which include, but not limited to bleeding, infection, vascular damage, cardiac perforation, and pneumothorax. He understood these risks and was willing to proceed. As such, he was brought to the EP/Cardiac Catheterization laboratory in a fasting and sedated state and prepped and draped in a sterile fashion, received IV antibiotics prior to initiation of the procedure and a venogram was performed showing patency of the left axillary vein. The patient underwent conscious sedation, with no related complications. The patient was brought to the EP/Cardiac Catheterization laboratory and the left chest and shoulder were prepped and draped in [place] [address] CARDIAC CATH REPORT Name: DON VALERIO Leonides Room: [address] IN [facility].#: [id number] Admission: 12/29/20 Attend Phys: René Patel MD Discharge: Date of : 39 Report #: [id number] During this case, Fluoroscopy and visipaque 20cc were used for imaging. The left subclavian region was infiltrated with 2% Lidocaine subcutaneous anesthesia. A transverse incision was made in the left upper chest cavity. The subcutaneous pocket was formed via blunt dissection. Percutaneous venous access was achieved and an introducer sheath was inserted into the left Subclavian vein. Sheaths were positions using the modified Seldinger technique Through the introducer sheaths the atrial and ventricular lead wires were positioned in the right atrial appendage and right ventricular apex respectively. Utilizing fluoroscopic guidance, the atrial and ventricular lead wires were advanced over the wires and positioned in the right atria and right ventricle respectively. Capturing and sensing thresholds were verified. The ventricular lead was interrogated and Electrode Parameters P Wave: 3.0 mV R Wave: 10.0 mV Atrial Threshold: 0.2 V at 0.40 ms Ventricular Threshold: 0.6 V at 0.40 ms Atrial Resistance: 490 ohms Ventricular Resistance: 700 ohms Dual Chamber The atrial and ventricular leads were then secured using 0 silk sutures. The subcutaneous pocket was irrigated with ancef antibiotic solution.The atrial and ventricular leads were attached to the appropriate receptacles on the pulse generator and set screws firmly tightened to insure adequate contact and stability. The lead and pulse generator were placed into the subcutaneous pocket. Sharp and sponge counts were confirmed to be correct. At this time the pocket was closed subcutaneously with a 2.0 Vicryl and the skin was closed with a 4.0 Vicryl. The operative site was dressed in sterile fashion with steri strips and the patient was transferred to the floor in stable condition. Complications The patient tolerated the procedure well and there were no complications associated with the procedure. Conclusion 1. [place] [address] CARDIAC CATH REPORT Name: DON VALERIO Room: [address] IN ..#: [id number] Admission: 12/29/20 Attend Phys: René Patel MD Discharge: Date of : 38 Report #: [id number] 2. Successful dual chamber pacemaker implantation. Recommendations 1. Follow-up site check in 1 week. 2. Follow-up device interrogation in 1 to 2 months. <ELECTRONICALLY SIGNED> By: Angelo Tucker MD, FACC 01/04/21 1304 1304 1304[facility] Tucker MD, FACC /INF
--- NOTE | 2021-01-04 13:38 | NUR ---
ICU ROUNDS: PACEMAKER WAS PLACED YESTERDAY. THE PLAN IS FOR PT TO HAVE TUNNELED CATHETHER PLACE TOMORROW. AND, EGD AND COLON ON .
--- NOTE | 2021-01-04 18:26 | NUR ---
PATIENT REMAINS A&O X 4, PLEASANT AND COOPERATIVE WITH CARES. DENIES PAIN. LEFT CHEST INCISION IS WELL APPROXIMATED WITHOUT DRAINAGE OR REDDNESS. PATIENT TO HAVE DIALYSIS IN THE AM AND THEN GO TUNNELED DIALYSIS CATH PLACEMENT IN THE AFTERNOON. PATIENT IS ALSO SCHEDULED FOR AN EGD AND COLONOSCOPY ON SUNDAY. PATIENT DROWSY FOR MOST OF THE DAY, HOIWEVER HE STATES THAT HE DOES NOT SLEEP AT NIGHT. CONTINUES TO HAVE SCANT URINE OUTPUT. NO OTHER CONCERNS AT THIS TIME. WILL CONTINUE TO MONITOR AND CARE PER PLAN OF CARE.
[2021-01-05] VITALS (38 sets, daily range): BP systolic 110–180; BP diastolic 53–111
--- NOTE | 2021-01-05 04:06 | NUR ---
ASSUMED CARE AT 1900H, ON NC AT 3LPM AND TOLERATED. PT STILL REFUSED THE BIPAP. NO DISTRESS AND NO FEVER NOTED. PT SLEPT WELL. KEPT NPO. FOR HD TODAY MORNING AND INSERTION ON TUNNELED DIALYSIS CATH IN THE AFTERNOON. EGD/COLONOSCOPY ON SUNDAY. CONTINUE MONITORING AND TOWARDS GOALS.
[2021-01-05 08:19] LABS: ABSOLUTE EOSINOPHILS 0.3 thou/uL (0.0-0.7); ABSOLUTE LYMPHOCYTES 0.7 thou/uL (0.8-5.3); ABSOLUTE NEUTROPHILS 6.5 thou/uL (1.6-8.1); BASOPHILS 0.3 %; EOSINOPHILS 3.1 %; HEMATOCRIT 28.4 % (42.0-52.0); HEMOGLOBIN 9.2 gm/dL (14.0-18.0); LYMPHOCYTES 8.1 %; MCH 31.8 pg (26.0-34.0); MCHC 32.3 g/dL (28.0-37.0); MCV 98.7 fL (80.0-100.0); MONOCYTES 12.3 %; MPV 8.3 fl. (7.2-11.1); NUCLEATED RBCS 0 /100WBC; PLATELET COUNT* 109 thou/uL (150-400); POLYS 76.2 %; RBC 2.88 mil/uL (4.50-6.00); RDW-CV 17.6 % (10.5-14.5); WBC 8.5 thou/uL (4.0-11.0)
[2021-01-05 08:27] LABS: CALCIUM 9.4 mg/dL (8.5-10.1); CREATININE 3.9 mg/dL (0.6-1.3); POTASSIUM 3.9 mmol/L (3.5-5.1)
[2021-01-05 08:30] LABS: ALBUMIN 2.6 g/dL (3.4-5.0); PHOSPHORUS* 4.3 mg/dL (2.5-4.9)
--- NOTE | 2021-01-05 12:57 | NUR ---
Nutrition: Pt admitted for SOA, renal failure. Seen for LOS. Spoke with RN. Pt has h/o dialysis, has dialysis cath. NC O2. NPO now for EGD/scope tomorrow. Suspect GIB. Wt variable, 260s. Also, h/o recent COVID. Labs: alb 2.6, prealb 27.4, BUN 59, cr 3.9, GFR 15, BG 102. No nutrition needs at this time. GOALS: advance diet to goal of renal after EGD/scope.
--- NOTE | 2021-01-05 16:00 | NUR ---
ICU ROUNDS: PT.HAD TEMPORARY DIALYSIS CATH PLACED TODAY AND PERMANENT PACEMAKER. HE WILL HAVE EGD AND COLONOSCOPY TOMORROW. DISCUSSED WITH PT.AND ABOUT OUTPT.DIALYSIS. HE WOULD LIKE TO GO TO [facility] AND HAVE AN AFTERNOON SHIFT. HIS SON WILL BE THE ONE TO DRIVE HIM TO DIALYSIS. CM WILL FAX INFORMATION TO [facility] ADMISSIONS IN AM.
--- NOTE | 2021-01-05 19:12 | NUR ---
Tunnelled cath placed in IR, patient returned to my care in stable condition. Vitals are as documented. No c/o pain. Nepho called to be sure its ok for patient to consume all of prep due to fluid restriction. Per Dr. Musa its ok to prep the patient as GI ordered. Patient educated and has started colon prep.
--- NOTE | 2021-01-05 23:25 | NUR ---
PT TO ROOM 228 VIA BED IN STABLE CONDITION. NO C/O OF PAIN OR SIGNS OF SOA THIS TIME. ALL BELONGINGS TRANSFER WITH PT INCLUDING PHONE AND GLASSES.
[2021-01-06 05:19] VITALS: BP 135/50
--- NOTE | 2021-01-06 06:40 | NUR ---
NO ACUTE CHANGES THROUGHOUT SHIFT. FULL ASSESSMENT COMPLETED CHARTED, ALL MEDS ADMINISTERED PER EMAR. ALL ROUNDINGS COMPLETED, ALL NEEDS MET. OF 0600 BOWEL PREP NOT COMPLETE THE STOOL IS NOT YET CLEAR. GI CUSTOM BOW MAKER HAS BEEN PAGED, RN AWAITING RESPONSE FOR FURTHER INSTRUCTIONS.
[2021-01-06 08:00] VITALS: BP 158/76
--- NOTE | 2021-01-06 09:00 | NUR ---
LIQUID LIGHT BROWN THIS AM. DR KANG NOTIFIED. PROCEDURE ON HOLD UNTIL TOMORROW. WILL RESUME BOWEL PREP THIS PM. PT GIVEN CLEAR LIQUID DIET
[2021-01-06 09:04] LABS: HEMATOCRIT 28.3 % (42.0-52.0); HEMOGLOBIN 9.1 gm/dL (14.0-18.0); MCHC 32.2 g/dL (28.0-37.0); MCV 99.4 fL (80.0-100.0); MPV 8.8 fl. (7.2-11.1); RBC 2.85 mil/uL (4.50-6.00); WBC 7.7 thou/uL (4.0-11.0)
--- NOTE | 2021-01-06 09:56 | NUR ---
FAXED OUTPT.DIALYSIS SET UP INFORMATION TO [facility]-[phone]/ [phone].
[2021-01-06 11:46] VITALS: BP 123/54
--- NOTE | 2021-01-06 12:04 | NUR ---
PT IS ICU TRANSFER. CM INFORMED BY THE PREVIOUS CM OF THE POC FOR THE PT. PLAN FOR THE PT TO REMAIN INPT AT THIS TIME. CM INITIATED OUTPATIENT HD FOR PT WITH [facility]. PT REQUEST AFTERNOOM CHAIR TIME, AND INFORMS THAT HIS SON WILL PROVIDED TRANSPORTATION TO DIALYSIS. CM AWAITING RETURN CALL FROM [facility] TO DETERMINE [facility] ABILITY TO ACCEPT PT AT D/C. CM WILL REMAIN AVAILABLE TO ASSIST AND FOLLOW NEEDED. [facility] DIALYSIS ADMISSIONS PHONE: [phone] FAX: [phone]
[2021-01-06 16:05] VITALS: BP 163/77
--- NOTE | 2021-01-06 18:01 | NUR ---
PT FREQUENT BM THIS SHIFT. PARTICIPATES IN THERAPY. DENIES PAIN. AT BS THIS AFTERNOON. TOLERATING PO WELL. NSR ON MONITOR
[2021-01-06 20:00] VITALS: BP 178/84
[2021-01-07] VITALS: BP 155/77
[2021-01-07 04:00] VITALS: BP 165/76
[2021-01-07 04:43] LABS: HEMATOCRIT 29.3 % (42.0-52.0); HEMOGLOBIN 9.6 gm/dL (14.0-18.0); MCH 32.4 pg (26.0-34.0); MCHC 32.7 g/dL (28.0-37.0); MCV 99.1 fL (80.0-100.0); MPV 8.6 fl. (7.2-11.1); RBC 2.96 mil/uL (4.50-6.00); RDW-CV 18.4 % (10.5-14.5)
[2021-01-07 04:52] LABS: ALBUMIN 2.6 g/dL (3.4-5.0); CALCIUM 9.2 mg/dL (8.5-10.1); CREATININE 3.5 mg/dL (0.6-1.3); PHOSPHORUS* 3.7 mg/dL (2.5-4.9)
[2021-01-07 08:20] VITALS: BP 164/77
--- NOTE | 2021-01-07 10:19 | NUR ---
ASSUMED CARE OF PT THIS AM AROUND 07- STEEL POURER INPLACE ORDERED, TRACING SR WITH BB, NOTES PACE MAKER, INCISSION SITE C/D/I WELL APPROXIMATED WITH STERI STRIPS- PT A&O X4- CONT OF BOWEL, WAYNE IN PLACE THIS AM D/D CLEAR OLGA URINE- ASSIST X1 WITH TRANSFERS FOR SAFETY- LCTA, DYSPNEA NOTED ON EXERTION- VSS, O2 SAT 96% ON RA- ABD SOFT/OBESE/NON-TENDER, BS X4 QUDAS- NPO STATUS FOR EGD/COLONOSCOPY THIS AM- IV NOTED TO LEFT FA AND LEFT AC INTACT AND SL- PT DENIED ANY C/O PAIN- CURRENTLY OFF UNIT FOR COLONOSCOPY/EGD AT THIS TIME- ALL NEEDS MET AT THIS TIME
[2021-01-07 12:00] VITALS: BP 112/68
--- NOTE | 2021-01-07 14:05 | NUR ---
Plan EGD/colon today. Pt refusing ARU or SNF, wants to dc home, rehab Dr to speak with Pt. Insurance auth to be initiated today. Plan dc tomorrow, CM to discuss HH if Pt continues to declined post acute care. Following.
[2021-01-07 20:00] VITALS: BP 130/71
[2021-01-08] VITALS (13 sets, daily range): BP systolic 134–159; BP diastolic 60–76
[2021-01-08 05:15] LABS: ABSOLUTE EOSINOPHILS 0.1 thou/uL (0.0-0.7); ABSOLUTE LYMPHOCYTES 0.7 thou/uL (0.8-5.3); ABSOLUTE MONOCYTES 1.3 thou/uL (0.0-1.2); ABSOLUTE NEUTROPHILS 5.2 thou/uL (1.6-8.1); BASOPHILS 0.4 %; EOSINOPHILS 1.4 %; HEMATOCRIT 27.8 % (42.0-52.0); HEMOGLOBIN 9.1 gm/dL (14.0-18.0); MCH 32.6 pg (26.0-34.0); MCHC 32.9 g/dL (28.0-37.0); MCV 99.3 fL (80.0-100.0); MONOCYTES 17.2 %; MPV 8.9 fl. (7.2-11.1); NUCLEATED RBCS 0 /100WBC; PLATELET COUNT* 97 thou/uL (150-400); RDW-CV 18.5 % (10.5-14.5); WBC 7.4 thou/uL (4.0-11.0)
[2021-01-08 05:23] LABS: CALCIUM 9.1 mg/dL (8.5-10.1); CREATININE 2.8 mg/dL (0.6-1.3); POTASSIUM 3.7 mmol/L (3.5-5.1)
--- NOTE | 2021-01-08 08:53 | NUR ---
ASSUMED CARE OF PT THIS AM AROUND 07- PLUMBER'S ASSISTANT IN PLACE ORDERED, TRACING SR WITH BBB, PACEMAKER NOTED- PACEMAKER INCISSION SIGHT C/D/I, INCISISON WELL APPROXIMATED WITH STERI-STRIPS IN PLACE- PT A&O X4- CONT OF B/B, OLIGURIA NOTED R/T DIALYSIS- LCTA, RESP EVEN AND UN-LABORED- VSS, O2 SAT 96% ON RA- ABD SOFT/ROUND/NON-TENDER, BS X4 QUADS- LAST BM REPORTED 01/07/21- IV NOTED TO LEFT FA AND LEFT AC INTACT AND SL- RIGHT CHESET TESSIO NOTED C/D/I- GOOD PO INTAKE NOTED THIS AM WITH BREAKFAST- PT DENIES ANY C/O PAIN/DISCOMFORT AT THIS TIME- CALL LIGHT AND PERSONAL BELONGINGS WITH IN REACH- ALL NEEDS MET AT THIS TIME
[2021-01-08] MEDS ORDERED: ELIQUIS2.5 MG PO (10:03)
--- NOTE | 2021-01-08 12:25 | NUR ---
SAYDA spoke with Mary at [facility], Pt's scheduled changed to T-TH-Sat, 1st chair. Pt is able to get to this chair time. Pt to dc to home today, per renal, Pt can dc without dialysis today, plan to start on Thursday 01/11. SAYDA faxed HH orders to [facility].
--- NOTE | 2021-01-12 12:07 | PATH ---
[facility] [address] [place] [address] PATHOLOGY RPT PROCEDURE Name: KLARISSA VALERIO Leonides Room: [address] IN .R.#: [id number] Admission: 12/29/20 Date of : 38 Discharge: 01/08/21 Report #: [id number] Path Case #: [id number] [facility] Accession Number: [id number] . 01 Material submitted: . PART A: colon - PROXIMAL ASCENDING COLON POLYP X3 HOT SNARE. Modifiers: ascending, proximal PART B: colon - MID ASCENDING COLON POLYP X2 HOT SNARE. Modifiers: mid, ascending PART C: colon - PROXIMAL TRANSVERSE COLON POLYP X3 HOT SNARE. Modifiers: proximal, transverse PART D: sigmoid colon - SIGMOID COLON POLYP COLD SNARE . 01 Clinical history: . EGD AND COLONOSCOPY . 02 Diagnosis: A. Proximal ascending colon polyp x3 (hot snare): - Multiple tubular adenomas, negative for high grade dysplasia. . B. Mid ascending colon polyp x2 (hot snare): - Multiple tubular adenomas, negative for high grade dysplasia. . C. Proximal transverse colon polyp x3 (hot snare): - Multiple tubular adenomas, negative for high grade dysplasia. . D. Sigmoid colon polyp (cold snare): - Serrated adenoma, negative for high grade dysplasia. . (LILLI:mm; 01/12/2021) [facility] 01/12/2021 0957 Local . 02 Electronically signed: . Shahriar Amaya MD, Pathologist NPI- [id number] . 01 Gross description: . A. The specimen is received in formalin, labeled "Gale Brown, proximal ascending colon polyp x3". Received are multiple segments of light figueredo soft tissue ranging in size from 0.2-1.2 cm in maximum dimensions. The specimen is submitted entirely in cassettes A1 and A2. . B. The specimen is received in formalin, labeled "Jakee Brown, mid ascending colon polyp x2". Received are multiple segments of pale figueredo tissue ranging in size from 0.2-0.5 cm in maximum dimensions. The specimen is submitted entirely in cassette B1. . C. The specimen is received in formalin, labeled "Klarissa Brown, [place] [address] PATHOLOGY RPT PROCEDURE Name: KLARISSA VALERIO Room: [address] IN ..#: [id number] Admission: 12/29/20 Date of : 38 Discharge: 01/08/21 Report #: [id number] Path Case #: [id number] transverse colon polyp x3". Received are multiple segments of pale figueredo tissue ranging in size from 0.2-0.7 cm in maximum dimensions. The specimen is submitted entirely in cassettes C1 and C2. . D. The specimen is received in formalin, labeled "Gale Brown, sigmoid colon polyp". Received is a segment of pale figueredo tissue measuring 0.4 cm in maximum dimensions. The specimen is submitted entirely in cassette D1. (CAA; 01/11/2021) QAC/QAC 01/11/2021 1048 Local . 02 Pathologist provided ICD-10: D12.2, D12.3, D12.5, Z12.11 . 02 CPT . 743478, 621197, 114545, 885267 Specimen Comment: A courtesy copy of this report has been sent to [phone] Specimen Comment: Report sent to , / Performed at: 01 [facility] [address], [place] [address] MD Lambert Hernandez MD Phone: [phone] Performed at: 02 [facility] [address], [place], [place] [id number] MD Shahriar Amaya MD Phone: [phone]
== END 2021-01-08 13:20 | disposition home health service (06) | DRG 242 ==
LOC: M.ERS 19:04 → M.ICU 21:08 → M.TBA-ER 21:08 → M.ICU 23:21 → M.2W 01-05 23:17
PROVIDERS: Emergency Medicine; Internal Medicine; Internal Medicine Critical Care Medicine; Internal Medicine Nephrology; Nurse Practitioner Adult Health; ADMIT Internal Medicine; ATTEND Internal Medicine
PROC: 02HV33Z Insertion of Infusion Device into Superior Vena Cava, Percutaneous Approach (ICD-10-PCS; 2020-12-30)
PROC: B548ZZA Ultrasonography of Superior Vena Cava, Guidance (ICD-10-PCS; 2020-12-30)
PROC: 5A0935A Assistance with Respiratory Ventilation, Less than 24 Consecutive Hours, High Flow/Velocity Cannula (ICD-10-PCS; principal; 2020-12-31)
PROC: 30233N1 Transfusion of Nonautologous Red Blood Cells into Peripheral Vein, Percutaneous Approach (ICD-10-PCS; principal; 2020-12-31)
PROC: 5A1223Z Performance of Cardiac Pacing, Continuous (ICD-10-PCS; principal; 2020-12-31)
PROC: 5A09357 Assistance with Respiratory Ventilation, Less than 24 Consecutive Hours, Continuous Positive Airway Pressure (ICD-10-PCS; principal; 2020-12-31)
PROC: 02HK3JZ Insertion of Pacemaker Lead into Right Ventricle, Percutaneous Approach (ICD-10-PCS; principal; 2020-12-31)
PROC: 5A09357 Assistance with Respiratory Ventilation, Less than 24 Consecutive Hours, Continuous Positive Airway Pressure (ICD-10-PCS; 2021-01-01)
PROC: 5A0935A Assistance with Respiratory Ventilation, Less than 24 Consecutive Hours, High Flow/Velocity Cannula (ICD-10-PCS; 2021-01-01)
PROC: 5A1D70Z Performance of Urinary Filtration, Intermittent, Less than 6 Hours Per Day (ICD-10-PCS; 2021-01-01)
PROC: 5A09357 Assistance with Respiratory Ventilation, Less than 24 Consecutive Hours, Continuous Positive Airway Pressure (ICD-10-PCS; 2021-01-02)
PROC: 5A0935A Assistance with Respiratory Ventilation, Less than 24 Consecutive Hours, High Flow/Velocity Cannula (ICD-10-PCS; 2021-01-02)
PROC: 0JH606Z Insertion of Pacemaker, Dual Chamber into Chest Subcutaneous Tissue and Fascia, Open Approach (ICD-10-PCS; 2021-01-03)
PROC: 02HK3JZ Insertion of Pacemaker Lead into Right Ventricle, Percutaneous Approach (ICD-10-PCS; 2021-01-03)
PROC: 5A09357 Assistance with Respiratory Ventilation, Less than 24 Consecutive Hours, Continuous Positive Airway Pressure (ICD-10-PCS; 2021-01-03)
PROC: 02H63JZ Insertion of Pacemaker Lead into Right Atrium, Percutaneous Approach (ICD-10-PCS; 2021-01-03)
PROC: B3121ZZ Fluoroscopy of Left Subclavian Artery using Low Osmolar Contrast (ICD-10-PCS; 2021-01-03)
PROC: 5A0935A Assistance with Respiratory Ventilation, Less than 24 Consecutive Hours, High Flow/Velocity Cannula (ICD-10-PCS; 2021-01-03)
PROC: 5A09357 Assistance with Respiratory Ventilation, Less than 24 Consecutive Hours, Continuous Positive Airway Pressure (ICD-10-PCS; 2021-01-04)
PROC: 5A0935A Assistance with Respiratory Ventilation, Less than 24 Consecutive Hours, High Flow/Velocity Cannula (ICD-10-PCS; 2021-01-04)
PROC: B5181ZA Fluoroscopy of Superior Vena Cava using Low Osmolar Contrast, Guidance (ICD-10-PCS; 2021-01-05)
PROC: B548ZZA Ultrasonography of Superior Vena Cava, Guidance (ICD-10-PCS; 2021-01-05)
PROC: 0JH63XZ Insertion of Tunneled Vascular Access Device into Chest Subcutaneous Tissue and Fascia, Percutaneous Approach (ICD-10-PCS; 2021-01-05)
PROC: 02HV33Z Insertion of Infusion Device into Superior Vena Cava, Percutaneous Approach (ICD-10-PCS; 2021-01-05)
PROC: 02PYX3Z Removal of Infusion Device from Great Vessel, External Approach (ICD-10-PCS; 2021-01-05)
PROC: 5A1D70Z Performance of Urinary Filtration, Intermittent, Less than 6 Hours Per Day (ICD-10-PCS; 2021-01-05)
PROC: 0DBK8ZZ Excision of Ascending Colon, Via Natural or Artificial Opening Endoscopic (ICD-10-PCS; 2021-01-07)
PROC: 5A1D70Z Performance of Urinary Filtration, Intermittent, Less than 6 Hours Per Day (ICD-10-PCS; 2021-01-07)
PROC: 0DJ08ZZ Inspection of Upper Intestinal Tract, Via Natural or Artificial Opening Endoscopic (ICD-10-PCS; 2021-01-07)
PROC: 0DBN8ZZ Excision of Sigmoid Colon, Via Natural or Artificial Opening Endoscopic (ICD-10-PCS; 2021-01-07)
PROC: 0DBL8ZZ Excision of Transverse Colon, Via Natural or Artificial Opening Endoscopic (ICD-10-PCS; 2021-01-07)
DX: I44.2 Atrioventricular block, complete (principal); N17.0 Acute kidney failure with tubular necrosis; N18.6 End stage renal disease; I50.43 Acute on chronic combined systolic (congestive) and diastolic (congestive) heart failure; J96.21 Acute and chronic respiratory failure with hypoxia; K57.31 Diverticulosis of large intestine without perforation or abscess with bleeding; I42.8 Other cardiomyopathies; D62 Acute posthemorrhagic anemia; J91.8 Pleural effusion in other conditions classified elsewhere; J98.11 Atelectasis; I16.1 Hypertensive emergency; G93.40 Encephalopathy, unspecified; I13.2 Hypertensive heart and chronic kidney disease with heart failure and with stage 5 chronic kidney disease, or end stage renal disease; E78.00 Pure hypercholesterolemia, unspecified; K57.30 Diverticulosis of large intestine without perforation or abscess without bleeding; M10.9 Gout, unspecified; I48.0 Paroxysmal atrial fibrillation; D75.89 Other specified diseases of blood and blood-forming organs; E66.9 Obesity, unspecified; K44.9 Diaphragmatic hernia without obstruction or gangrene; K64.4 Residual hemorrhoidal skin tags; D12.6 Benign neoplasm of colon, unspecified; Z20.822 Contact with and (suspected) exposure to COVID-19; Z79.01 Long term (current) use of anticoagulants; Z87.891 Personal history of nicotine dependence; Z79.899 Other long term (current) drug therapy; Z86.16 Personal history of COVID-19; Z68.32 Body mass index [BMI] 32.0-32.9, adult

== ENCOUNTER 2021-01-13 17:12 | Emergency (ER) | payer OTHER ==
[~2021-01-13] VITALS: Ht 185.4 cm; Wt 107.0 kg
[2021-01-13 18:07] LABS: HEMATOCRIT 33.8 % (42.0-52.0); MCH 32.2 pg (26.0-34.0); MCHC 32.5 g/dL (28.0-37.0); MCV 99.3 fL (80.0-100.0); MPV 7.9 fl. (7.2-11.1); RBC 3.41 mil/uL (4.50-6.00); RDW-CV 18.2 % (10.5-14.5); WBC 7.8 thou/uL (4.0-11.0)
[2021-01-13 18:10] LABS: CALCIUM 10.3 mg/dL (8.5-10.1); CREATININE 3.6 mg/dL (0.6-1.3); POTASSIUM 3.9 mmol/L (3.5-5.1)
[2021-01-13 19:03] VITALS: BP 137/71
--- NOTE | 2021-01-14 12:38 | EKG ---
[place] [address] ELECTROCARDIOGRAM REPORT Name: DON VALERIO Room: [facility]#: [id number] Admission: 01/13/21 Attend Phys: Discharge: 01/13/21 Date of : 38 Date of Service: 01/13/21 1749 Report #: [id number] THIS REPORT FOR: //name// [facility] ED Test Date: 2021-01-13 Test Time: 17:49:34 Pat Name: DON VALERIO Department: Room: Gender: Manager User Interface: 14 : 1940 Requested By: Zach Eason Order Number: [id number] MD: Kevin Amaro Measurements Intervals [place] Rate: 69 P: 132 [place]: 173 QRS: -68 QRSD: 182 T: 107 QT: 507 QTc: 544 Interpretive Statements Sinus rhythm Left bundle branch block Prolonged QT interval Compared to ECG 12/29/2020 20:19:27 Left bundle branch block persists Prolonged QT interval now present Atrial premature complex(es) no longer present Short [place] interval no longer present Electronically Signed On 01-14-2021 12:38:23 HARNESS TIER by Kevin Amaro [email or web address] <ELECTRONICALLY SIGNED> By: Kevin Amaro MD, FACC 01/14/21 1238 1749 1749 Kevin Amaro MD, FAC /EPI
== END 2021-01-13 19:04 | disposition home or self-care (01) ==
LOC: M.ERS 17:12
PROVIDERS: Emergency Medicine Emergency Medical Services
DX: R03.1 Nonspecific low blood-pressure reading (principal); I12.0 Hypertensive chronic kidney disease with stage 5 chronic kidney disease or end stage renal disease; N18.6 End stage renal disease; Z99.2 Dependence on renal dialysis; Z98.890 Other specified postprocedural states; Z79.899 Other long term (current) drug therapy

== ENCOUNTER → 2021-07-23 | Outpatient (CLI) | payer OTHER | LOC: M.LAB 07:34 | DX: E87.5 Hyperkalemia (principal) ==

== ENCOUNTER → 2021-11-23 | Outpatient (CLI) | payer OTHER | LOC: M.ULTRA 12:21 | PROVIDERS: ATTEND Family Medicine | DX: I73.9 Peripheral vascular disease, unspecified (principal) ==

== ENCOUNTER → 2021-12-12 | Outpatient (CLI) | payer OTHER ==
[2021-12-12 09:10] LABS: CALCIUM 8.8 mg/dL (8.5-10.1); CREATININE 14.7 mg/dL (0.6-1.3)
[2021-12-12 09:28] LABS: POTASSIUM 6.2 mmol/L (3.5-5.1)
== END ==
LOC: M.LAB 08:39
PROVIDERS: ATTEND Internal Medicine Nephrology
DX: N18.6 End stage renal disease (principal); Z99.2 Dependence on renal dialysis